=== PATIENT | female | born 1935 | race Caucasian/White ===

== ENCOUNTER 2020-03-02 11:09 | Outpatient (CLI) | payer MEDICARE, SELFPAY ==
--- NOTE | ~2020-03-02 | XR_ITS ---
EXAMINATION: XR lumbar spine 6V w bending EXAM DATE: 03/02/2020 11:54 INDICATION: Low back pain, bilateral hip radiculopathy. TECHNIQUE: Lumber spine frontal, lateral, bilateral oblique projections. Coned down frontal and lat eral L5-S1 lumbar projections for interpretation. There is no prior study for comparison. FINDINGS: There is no spondylolysis. There is moderate lumbar facet arthropathy. Moderate disc diseas e L2-L5. The vertebral bodies are aligned in the AP dimension on the lateral projections. No endplate erosive change. Patient may have a right renal arterial stent. IMPRESSION: 1. Moderate lumbar spondylosis. Reviewed, dictated and finalized at location B.
== END 2020-03-02 11:10 | disposition home or self-care (01) ==
PROVIDERS: PCP Internal Medicine
DX: M54.5 Low back pain (principal); M47.816 Spondylosis without myelopathy or radiculopathy, lumbar region
CPT/HCPCS: 72114

== ENCOUNTER → 2021-03-05 14:32 | Outpatient (CLI) | payer MEDICARE, SELFPAY ==
--- NOTE | ~2021-03-05 | XR_ITS ---
XR hip RT 2V w AP pelvis DATE: 03/05/2021 15:07 INDICATION: Right low back pain, sciatica, right hip pain TECHNIQUE: AP pelvis. AP and lateral views of right hip COMPARISON: None FINDINGS: Multilevel lumbar degenerative disc disease. The pubic symphysis and sacroiliac joints are intact. No pelvic fracture or bone destruction. There is severe bilateral hip osteoarthritis. No fracture or dislocation, avascular necrosis or bone destruction of the right hip is detected. IMPRESSION: Bilateral severe hip osteoarthritis Reviewed, dictated and finalized at location B.
--- NOTE | ~2021-03-05 | XR_ITS ---
XR lumbar spine min 4V DATE: 03/05/2021 15:06 INDICATION: Low back pain, right sciatica TECHNIQUE: AP, lateral, bilateral oblique views, coned lateral lumbosacral view COMPARISON: 03/02/2020 lumbar spine FINDINGS: Incidentally noted are numerous calcified gallstones. Probable right renal artery stent. There is diffuse osteopenia. There is mild levoscoliosis of the lumbar spine. There is multilevel degenerative disc disease of the lumbar spine. There is degenerative change of the facet joints but no pars intra-articular is defect is noted. The lumbar pedicles are intact. No fracture or bone destruction of the lumbar spine is evident. The sacroiliac joints are intact. IMPRESSION: Diffuse osteopenia Prominent multilevel degenerative disc disease Cholelithiasis Reviewed, dictated and finalized at location B.
== END ==
PROVIDERS: PCP Family Medicine; Visit Provider Family Medicine
DX: M54.41 Lumbago with sciatica, right side (principal); M16.0 Bilateral primary osteoarthritis of hip; M85.88 Other specified disorders of bone density and structure, other site; M51.36 Other intervertebral disc degeneration, lumbar region; K80.20 Calculus of gallbladder without cholecystitis without obstruction
CPT/HCPCS: 72110; 73502

== ENCOUNTER 2021-04-09 10:00 | Outpatient (RCR) | payer MEDICARE, SELFPAY ==
--- NOTE | 2021-03-14 13:39 | PTOPEVAL ---
PHYSICAL THERAPY EVALUATION AND PLAN OF CARE Thank you for referring Lorenza Serrano to [facility].? The patient is scheduled to be seen for therapy? 2x/week for 4 weeks. Please review, sign, date and return this plan of care HORTENCIA. I agree with and certify that the following plan of care is medically necessary. Referring Physician Date Attending Provider: Anival Olsen MD Evaluation Outpatient Past Medical History Neurological History Hx Other Neurological Disorders Yes: bilatera neuropathy Respiratory History Hx Chronic Obstructive Pulmonary Disease Yes (COPD) Musculoskeletal History Hx Joint Replacement Yes: right TKA Hx Other Musculoskeletal Disorders Yes: foot surgery Diagnosis low back pain with right sided leg pain Onset several years Subjective Information reports a long history of low Query Text:As Reported By Patient/ back pain with newer onset of Family right sided leg pain. Reports on and off back pain for several years. Does wear a back brace when doing more difficult tasks like lawn work or cleaning the deck, etc. The brace does help. Notes that there is a right sided leg pain that started as kind of a burning sensation. States it has been going on for about a month. States that she was up and down the stairs a lot. She does avoid standing and walking for long periods due to COPD. Self Report Pain Assessment Back Reported Pain Level 4 Pain Description Aching Lowest Pain Intensity 1 Greatest Pain Intensity 8 Pain Aggravating Factors Prolonged Position,Walking, Weight Bearing/Standing Other Pain Aggravating Factors sleeps on right side with head of bed elevated Pain Behaviors Anxious Pain Score Pain Score 4: Self Report Additional Pain Score Comments noted increased episodes of waking at night due to pain Interventions Used Interventions Used By Clinicians Exercise,Mobilization Cervical and Lumbar ROM Lumbar ROM Lumbar Flexion Active [place] Query Text:Hands to: Lateral Rotation Right (0-45) 30 Query Text:Active in Degrees Lateral Rotation Left (0-45) 15 Query Text:Active in Degrees Lumbar Comments hinging
--- NOTE | 2021-03-20 11:29 | PCPTNOTE ---
Patient called & cancelled scheduled appointment this date stated she woke up having an issue wasn't going to make it in today.
--- NOTE | 2021-04-09 10:23 | PTOPEVAL ---
PHYSICAL THERAPY DISCHARGE NOTE Thank you for referring Lorenza Serrano to [facility].? Please review, sign, date and return this plan of care HORTENCIA. I agree with and certify that the following plan of care is medically necessary. Referring Physician Date Attending Provider: Anival Olsen MD Discharge Diagnosis low back pain with right sided leg pain Onset several years Subjective Information States that she is feeling Query Text:As Reported By Patient/ really good in regards to pain Family . She is confident in her ability to do her exercises and is getting a recumbent bike Pain Score Pain Score 0: Self Report Cervical and Lumbar ROM Lumbar ROM Lumbar Flexion Active [place],Ankle Query Text:Hands to: Lumbar Extension (0-40) 5 Query Text:Active in Degrees Lateral Rotation Right (0-45) 30 Query Text:Active in Degrees Lateral Rotation Left (0-45) 30 Query Text:Active in Degrees Lower Extremity Muscle Strength Testing Hip Strength Right Hip Flexion Strength 5 Normal Hip Extension Strength 4 Good Hip Abduction Strength 4+ Good + Left Hip Flexion Strength 5 Normal Hip Extension Strength 4+ Good + Hip Abduction Strength 4+ Good + Knee Strength Bilateral Knee Flexion Strength 5 Normal Knee Extension Strength 5 Normal Muscle Length Testing Muscle Length Testing Piriformis w/Hip Flexion >90 Degrees (R) Moderate Tightness,(L) Moderate Tightness Left Hamstring Length -15 Query Text:(90 - 90 Position) Right Hamstring Length -15 Query Text:(90 - 90 Position) Palpation Assessment Palpation Palpation tender to palpation of right glutes and piriformis and ITB Balance Assessment 5 Time Sit to Stand Time in Seconds 12.12 General Exercise General Exercises Side Bilateral Exercise Location LE Exercise Description reviewed HEP and patient is Query Text:Record Sets, Reps, independent; issued green band Resistance, and Position to increase resistance Exercise Comments verbal review of HEP- performing without any concerns or questions; PT Clinical Summary Lorenza is an 85 yo female presenting to outpatient physical therapy with chronic intermittent low back pain with new onset r
== END 2021-04-09 17:37 | disposition home or self-care (01) ==
LOC: ANHPT 10:00
PROVIDERS: PCP Family Medicine; Visit Provider Family Medicine
DX: M54.41 Lumbago with sciatica, right side (principal)
CPT/HCPCS: 97110; 97140; 97162

== ENCOUNTER 2021-06-05 16:39 | Outpatient (CLI) | payer MEDICARE, SELFPAY ==
--- NOTE | ~2021-06-05 | DEXA_ITS ---
Bone Density Report Name: ANDRES GRANADOS Age: 85 Sex: Female Ethnicity: White Date of : 1935 Indication: postmenopausal; prior fracture; asthma or emphysema; hysterectomy; Referring Provider: MIC GONZALEZ Study: Bone densitometry was performed. Exam Date: June 05, 2021 Accession number: [id number] Bone Density: Region BMD T-score Z-score Classification AP Spine (L1-L4) 0.989 -0.5 2.3 Normal Femoral Neck (Left) 0.762 -0.8 1.7 Normal Total Hip (Left) 0.888 -0.4 1.9 Normal Total Hip Bilateral Avg 0.854 -0.7 1.6 Normal Femoral Neck (Right) 0.669 -1.6 0.9 Osteopenia Total Hip (Right) 0.819 -1.0 1.3 Normal World Health Organization criteria for BMD impression classify patients as: Normal (T-score at or above -1.0), Osteopenia (T-score between -1.0 and -2.5), or Osteoporosis (T-score at or below -2.5). 10-year Fracture Risk(1): Major Osteoporotic Fracture 19% Hip Fracture 4.6% Reported Risk Factors: [place] (), Neck BMD=0.669, BMI=33.8, previous fracture (1) FRAX(R) Version 3.08. Fracture probability calculated for an untreated patient. Fracture probability may be lower if the patient has received treatment. Clinical Information Provided by Patient: Has had a low trauma fracture Has used the following medications: Vitamin D, Calcium Has the following medical conditions: Asthma or Emphysema, Hysterectomy Patient maximum height was 62 Menopause Age: 24 No regular weight bearing exercise Drinks caffeinated beverages Onset of menses at age 17 Number of children 2 Impression: The patient has low bone mass, based on the Right Femoral Neck T-score. The patient has an estimated ten-year risk of hip fracture of 4.6% and an estimated ten-year risk of major fracture of 19%, based on the WHO FRAX algorithm. The patient has risk factors, including: previous fracture. Discussion: BONE DENSITY IS LOW AT ONE OR MORE SKELETAL SITES. THE PATIENT'S BMD AND CLINICAL RISK FACTORS CONTRIBUTE TO THIS PATIENT'S INCREASED RISK OF FRACTURE. This patient's lowest T-score is low at one or more skeletal sites. It meets the World Health Organization's (WHO) criteria for ?low bone mass? (T-score between -1.0 and -2.5). The patient's 10-year risk of hip fracture as calculated by FRAX exceeds the threshold where pharmacological therapy is recommended by the National Osteoporosis Foundation (NOF). However, all treatment decisions require clinical judgment and consideration of individual patient factors, including patient preferences, comorbidities, previous drug use, risk factors not captured in the FRAX model (e.g., frailty, falls, vitamin D deficiency, increased bone turnover, interval significant decline in bone density) and possible under or overestimation of fracture risk by FRAX. The patient should foll
== END 2021-06-05 16:40 | disposition home or self-care (01) ==
PROVIDERS: PCP Family Medicine; Visit Provider Family Medicine
DX: Z78.0 Asymptomatic menopausal state (principal); M85.851 Other specified disorders of bone density and structure, right thigh
CPT/HCPCS: 77080

== ENCOUNTER 2021-12-04 09:41 | Outpatient (RCR) | payer MEDICARE, SELFPAY ==
[2021-12-04] MEDS: ACETAMINOPHEN 325 MG TABLET 650 MG PO (11:44)
[2021-12-04] MEDS: diphenhydrAMINE HCl CAP 25 MG CAPSULE PO (11:44)
[2021-12-04] MEDS: FAMOTIDINE 20 MG TABLET PO (11:45)
[2021-12-04] MEDS: BEBTELOVIMAB 175 MG/2 ML VIAL IV PUSH (12:11)
[2021-12-04 12:18] VITALS: BP 137/75; PULSE 64; RESP 18; TEMP 36.3; O2SAT 98
[2021-12-04 13:07] VITALS: BP 154/53; PULSE 66; RESP 18; O2SAT 99
== END 2021-12-04 16:00 ==
LOC: AMCINF 09:41
PROVIDERS: PCP Family Medicine; Referring Provider Family Medicine; Visit Provider Internal Medicine Hematology & Oncology
DX: U07.1 COVID-19 (principal); N18.9 Chronic kidney disease, unspecified
CPT/HCPCS: A9270; M0222; Q0222

== ENCOUNTER 2023-06-16 14:26 | Outpatient (CLI) | payer MEDICARE, SELFPAY ==
[2023-06-16 15:31] LABS: Influenza A QL RT-PCR Negative (Negative); Influenza B QL RT-PCR Negative (Negative); RSV RNA, RT-PCR Negative (Negative); SARS-CoV-2 RNA PCR Positive (Negative)
== END 2023-06-16 14:27 | disposition home or self-care (01) ==
LOC: ANHLAB 14:27
PROVIDERS: PCP Family Medicine; Visit Provider Nurse Practitioner Family
DX: R68.89 Other general symptoms and signs (principal); U07.1 COVID-19
CPT/HCPCS: 87637

== ENCOUNTER 2023-08-19 12:06 | Outpatient (CLI) | payer MEDICARE, SELFPAY ==
[2023-08-19 12:43] LABS: Basophils Percent Auto 0.6 % (0.2-1.2); Eosinophils Absolute Auto 0.2 K/mm3 (0-0.3); Eosinophils Percent Auto 3.9 % (0-4.4); Hematocrit 40.6 % (37.0-47.0); Hemoglobin 13.3 g/dL (12.0-15.0); Immature Granulocyte Absolute 0.01 K/mm3 (0.00-0.031); Immature Granulocyte Percent A 0.2 % (0-0.5); Lymphocytes Percent Auto 35.4 % (18.3-44.2); Mean Corpuscular HGB Conc 32.8 g/dl (32-36); Mean Corpuscular Hemoglobin 30.4 pg (26-34); Mean Corpuscular Volume 92.9 fl (80-100); Mean Platelet Volume 9.4 fl (7.4-10.4); Monocytes Absolute Auto 0.6 K/mm3 (0.1-0.6); Monocytes Percent Auto 11.6 % (2.6-8.5); Neutrophils Absolute Auto 2.5 K/mm3 (1.3-6.7); Neutrophils Percent Auto 48.3 % (45.5-73.1); Platelet Count Result 201 k/mm3 (150-375); Red Blood Count 4.37 M/mm3 (4.2-5.4); Red Cell Distribution Width 13.1 % (11.5-14.5); White Blood Count 5.1 K/mm3 (4.5-10.0)
[2023-08-19 12:56] LABS: Alanine Aminotransferase 17 U/L (6-35); Alkaline Phosphatase 96 U/L (38-126); Anion Gap 3 mmol/L (8-16); Aspartate Amino Transferase 23 U/L (14-36); Bilirubin,Total 0.6 mg/dL (0.2-1.3); Blood Urea Nitrogen 21 mg/dL (7-17); Calcium 9.3 mg/dL (8.4-10.2); Carbon Dioxide 27 mmol/L (22-30); Chloride 105 mmol/L (98-107); Cholesterol 156 mg/dL (0-200); Estimated Glomerular Filt Rate 52; Glucose 116 mg/dL (65-110); HDL Direct 69 mg/dL; Potassium 4.2 mmol/L (3.4-5.0); Sodium 135 mmol/L (137-145); Triglycerides 181 mg/dL (<150)
[2023-08-19 13:04] LABS: Appearance Urine Clear (Clear); Bacteria Urine None Seen /hpf; Bilirubin Urine Negative (Negative); Blood Urine 1+ (Negative); Color Urine Yellow (Yellow); Glucose Urine UA Negative (Negative); Hyaline Casts Urine Present /lpf; Ketones Urine Negative (Negative); Leukocyte Esterase Ur 1+ LEU/UL (NEGATIVE); Nitrate Urine Negative (Negative); Non Pathogenic Casts 0-2; Protein Urine Negative (Negative); Specific Grav Ur 1.021 (1.001-1.035); Squamous Epithelial Cell Urine Occasional /hpf (Few); WBC Urine 0-5 /hpf (0-3); pH Urine 5.5 (5.0-9.0)
[2023-08-19 13:07] LABS: LDL Cholesterol Direct 66 mg/dL
[2023-08-19 13:12] LABS: Add Urine Microscopic? YES
== END 2023-08-19 12:07 | disposition home or self-care (01) ==
LOC: ANHLAB 12:14
PROVIDERS: PCP Family Medicine; Visit Provider Family Medicine
DX: J44.9 Chronic obstructive pulmonary disease, unspecified (principal); E78.2 Mixed hyperlipidemia; R73.01 Impaired fasting glucose
CPT/HCPCS: 36415; 80048; 80061; 80076; 81001; 84443; 85025

== ENCOUNTER 2024-03-08 10:00 | Outpatient (RCR) | payer MEDICARE, SELFPAY | END 2024-03-10 16:59 | disposition home or self-care (01) | LOC: ANHCPREHAB 10:00 | PROVIDERS: PCP Family Medicine; Visit Provider Internal Medicine Cardiovascular Disease | DX: Z95.5 Presence of coronary angioplasty implant and graft (principal) | CPT/HCPCS: 93798 ==

== ENCOUNTER 2024-09-01 09:29 | Outpatient (CLI) | payer MEDICARE, SELFPAY ==
--- NOTE | ~2024-09-01 | US_ITS ---
EXAMINATION: US arterial duplex LE DATE: 09/02/2024 8:02 CDT INDICATION: Peripheral vascular disease TECHNIQUE: Segmental pressures and plethysmographic and Doppler waveforms of the brachial and lower e xtremity arteries were obtained. COMPARISON: None. FINDINGS: There is biphasic flow seen throughout the right lower extremity arteries. There is diminished systol ic velocity in the right posterior tibial artery which measures 23 cm/s. The remainder of the right l ower extremity peak systolic velocities are unremarkable. There is biphasic flow throughout the left lower extremity arteries without evidence for significant pressure gradient. There is normal color flow and Doppler signal. IMPRESSION: 1. No significant peripheral vascular abnormality is identified in the left lower extremity arteries with biphasic flow in normal velocities. 2: Normal biphasic flow in the right lower extremity arteries decreases systolic velocity in the post erior tibial artery measuring 23 cm/s, consistent with peripheral arterial disease. Reviewed, dictated and finalized at location A. IMPRESSION: 1. No significant peripheral vascular abnormality is identified in the left low er extremity arteries with biphasic flow in normal velocities. 2: Normal biphasic flow in the right lower extremity arteries decreases systoli c velocity in the posterior tibial artery measuring 23 cm/s, consistent with pe ripheral arterial disease.
--- OUTSIDE RECORDS SUMMARY | 2024-09-01 10:17 | XMS_ITS | Clinical Summary ---
Author Organization [facility] Address [address] [place] [address] Care Team Providers Care Supervisor Shuttle Fitting Name Role Phone Eladio Roblero MD Unavailable [phone] Anival Olsen MD Primary Care Provider [phone] Allergies No known active allergies Medications vitamin B-12 (CYANOCOBALAMIN) 1000 mcg tablet Take 1 tablet (1,000 mcg total) by mouth daily. Active aspirin EC 81 MG EC tablet Take 1 tablet (81 mg total) by mouth daily. Active ondansetron 4 MG disintegrating tablet Take 1 tablet (4 mg total) by mouth every 8 (eight) hours as needed for Nausea. 20 tablet 9 Active meclizine 25 MG tablet Take 1 tablet (25 mg total) by mouth 3 (three) times daily as needed. Active clopidogrel (PLAVIX) 75 MG tablet Take 1 tablet (75 mg total) by mouth daily. 90 tablet 3 4 10/16/19 25 Active famotidine (PEPCID) 20 MG tablet Take 1 tablet (20 mg total) by mouth daily. 1 tablet 4 Active isosorbide mononitrate ER (IMDUR) 60 MG 24 hr tablet Take 1 tablet (60 mg total) by mouth daily. 90 tablet 2 4 Active nitroglycerin (NITROSTAT) 0.4 MG SL tabletIndications:C hest pain Place 1 tablet (0.4 mg total) under the tongue every 5 (five) minutes as needed for Chest Pain. Max of 3 doses, after third dose call 911 25 tablet 1 4 Active carvedilol (COREG) 6.25 MG tablet TAKE 1 TABLET BY MOUTH TWICE DAILY 180 tablet 3 4 Active atorvastatin (LIPITOR) 40 MG tablet TAKE 1 TABLET BY MOUTH NIGHTLY AT BEDTIME 90 tablet 1 5 Active ramipril (ALTACE) 10 MG capsule TAKE 1 CAPSULE BY MOUTH DAILY 100 capsule 2 5 Active Active Problems Problem Noted Date Diagnosed Date Palpitations 03/26/2024 Premature atrial complexes 08/08/2022 Hyperlipidemia, unspecified hyperlipidemia type 09/28/2018 Coronary stent patent 09/28/2018 Shortness of breath 07/31/2018 Class 1 obesity due to exces s calories without serious comorbidity with body mass index (BMI) of 34.0 to 34.9 in adult 07/31/2018 Hypertensive heart disease without heart failure 07/31/2018 Coronary artery disease Myocardial infarct ([facility]) Encounters Date Type Department Care Team Description 06/03/2024 Telephone [employer] [facility], [address] [address] Eladio Roblero MD Concerns from Last 3 Months Family History Medical History Relation Comments Emphysema Father Diabetes Mother Heart Attack Mother Hyperlipidemia Mother Relation Status Comments Brother Alive Father (Age 77) Mother (Age 77) Social History Tobacco Use Types Packs/Day Years Used Date Smoking Tobacco: Never Smokeless Tobacco: Never Tobacco Cessation:Counseling Given: Not Answered Alcohol Use Standard Drinks/Week Comments No 0 (1 standard drink = 0.6 oz pur e alcohol) AUDIT-C Answer Date Recorded Frequency of Alcohol Consumption Never 07/11/2018 Average Number of Drinks Not on file 019 Frequency of Binge Drinking Not on file 07/2018 Comments No Sex and Gender Information Value Date Recorded Sex Assigned at Not on file 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 Gender Identity Not on file Sexual Orientation Not on file Occupation Industry Job Start Date Job End Date Not on file Not on file Not on file Not on file Last Filed Vital Signs Vital Sign Reading Time Taken Comments Blood Pressure 120/62 03/26/2024 12:38 PM CDT Pulse 74 03/26/2024 12:38 PM CDT Temperature 36.6 C (97.9 F) 10/16/2023 8:31 AM CDT Respiratory Rate 17 10/16/2023 2:15 PM CDT Oxygen Saturation 97% 03/26/2024 12:38 PM CDT Inhaled Oxygen Concentration - - Weight 86.8 kg (191 lb 6.4 oz) 03/26/2024 12:38 PM CDT Height 157.5 cm (5' 2 ) 03/26/2024 12:38 PM CDT Body Mass Index 35.01 03/26/2024 12:38 PM CDT Plan of Treatment Upcoming Encounters Date Type Department Care Team (Late st Contact Info) Description 09/24/2024 1:30 PM CDT Office Visit [facility] [phone] Eladio Roblero MD [address] [place] [phone] Health Maintenance Due Date Last Done Comments Pneumococcal Vaccine: 65+ Ye ars (1 of 2 - PCV) 1942 DTaP, Tdap and Td Vaccines ( 1 - Tdap) 1955 Zoster Vaccines (1 of 2) 1986 Annual Medicare Wellness Visit 2001 RSV Immunization or 60+ Years (1 - 1-dose 75+ series) 2011 COVID-19 Vaccine (2 - 2023-2 5 season) 2024 08/25/2020 Influenza Adult (#1) 2024 Meningococcal B Vaccine Aged Out No l onger eligible based on patient's age to complete this topic Meningococcal Vaccine Aged Out No vahid jin eligible based on patient's age to complete this topic RSV Immunizations Under 20 Months Aged Out No longer eligible based on patient's age to complete this topic Insurance [facility] Advance Directives * Full Code (Latest Code Status on File) Date Activated Date Inactivated Comments 10/16/2023 10:55 AM 10/16/2023 4:48 PM Care Teams Supervisor Shuttle Fitting Relationship Specialty Start Date End Date Anival Olsen MD [address] [place] [address] [address] [place] [address] PCP - General FAMILY PRACTICE 04/05/21 Eladio Roblero MD [address] [facility] [address] [place] [phone] [place] [employer] CARDIOVASCULAR DISEASE 07/15/18
--- OUTSIDE RECORDS SUMMARY | 2024-09-01 10:17 | XMS_ITS | Encounter Summary ---
Author Organization [facility] Address [facility] [place] [address] Care Team Providers Care Fingernail Former Name Role Phone Yandel Covington MD Primary Care Provider [phone] Eladio Roblero MD Unavailable [phone] Anival Olsen MD Primary Care Provider [phone] Encounter Details Date Type Department Care Team (Late st Contact Info) Description 09/30/2018 [facility] at [address] [address] Jayme Pollard MA Social History Tobacco Use Types Packs/Day Years Used Date Smoking Tobacco: Never Smokeless Tobacco: Never Alcohol Use Standard Drinks/Week Comments No 0 (1 standard drink = 0.6 oz pur e alcohol) AUDIT-C Answer Date Recorded Frequency of Alcohol Consumption Never 07/11/2018 Average Number of Drinks Not on file 019 Frequency of Binge Drinking Not on file 07/2018 Comments Unknown Sex and Gender Information Value Date Recorded Sex Assigned at Not on file 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 Gender Identity Not on file Sexual Orientation Not on file Occupation Industry Job Start Date Job End Date Not on file Not on file Not on file Not on file documented as of this encounter Plan of Treatment Upcoming Encounters Date Type Department Care Team (Late st Contact Info) Description 09/24/2024 1:30 PM CDT Office Visit [facility] [phone] Eladio Roblero MD [address] [phone] documented as of this encounter Procedures Procedure Name Priority Date/Time Associated Diagnosis Comments CBC (OUTSIDE LAB) Routine 06/16/2020 COMPREHENSIVE METABOLIC PANEL Routine 06/16/2020 LIPID PANEL Routine 06/16/2020 COMPREHENSIVE METABOLIC PANEL Routine 12/27/2019 LIPID PANEL Routine 12/27/2019 HEMOGLOBIN, GLYCOSYLATED Routine 12/27/2019 COMPREHENSIVE METABOLIC PANEL Routine 09/29/2018 LIPID PANEL Routine 09/29/2018 documented in this encounter Results * LIPID PANEL (06/16/2020) Pathologist [facility] CHOLESTEROL 158 HDL 77 TRIGLYCERIDES 87 LDL (CALCULATED) 64 06/16/2020 [facility]ORAT[facility] Final Result * CBC (OUTSIDE LAB) (06/16/2020) Pathologist [facility] WBC 5.1 HGB 13.1 HCT 39.9 PLT 194 06/16/2020 us Doc [facility] Abstract LAB-OUTSIDE/ABSTRACTED Final Result * (ABNORMAL) COMPREHENSIVE METABOLIC PANEL (06/16/2020) SODIUM S/P/B 139 POTASSIUM S/P/B 4.7 CO2 26 CHLORIDE S/P/B 107 GLUCOSE 107 mg/dL CALCIUM S/P/B 9.2 BUN 24 CREATININE S/P/B 1.02(A) 0.5 - 1.0 EGFR NON-AFR. AMER. 52 <=90 ALKALINE PHOSPHATASE S/P/B 82 ALT 16 AST 22 BILIRUBIN TOTAL S/P/B 0.80 ALBUMIN S/P/B 3.7 3.5 - 5.0 TOTAL PROTEIN S/P/B 6.1 GLOBULIN 2.4 06/16/2020 us Doc [facility] Final Result * COMPREHENSIVE METABOLIC PANEL (12/27/2019) SODIUM S/P/B 136 137 - 145 POTASSIUM S/P/B 4.9 3.5 - 5.1 CO2 28 22 - 30 CHLORIDE S/P/B 103 98 - 107 GLUCOSE 114 70 - 99 mg/dL CALCIUM S/P/B 9.3 8.4 - -10.2 BUN 24 8 - 19 CREATININE S/P/B 0.96 0.5 - 1.0 EGFR NON-AFR. AMER. 56 <=90 ALKALINE PHOSPHATASE S/P/B 86 38 - 126 ALT 18 0 - 35 AST 23 15 - 37 BILIRUBIN TOTAL S/P/B 0.90 0.20 - 1.30 ALBUMIN S/P/B 3.7 3.5 - 5.0 TOTAL PROTEIN S/P/B 6.3 6.3 - 8.2 GLOBULIN 2.6 2.6 - 4.2 12/27/2019 us Doc [facility] LAB[facility] Final Result * HEMOGLOBIN, GLYCOSYLATED (12/27/2019) HGB A1C 5.8 4.0 - 6.0 % 12/27/2019 us Doc [facility] Edited Resul t - Final * LIPID PANEL (12/27/2019) CHOLESTEROL 158 140 - 199 HDL 77 >40 TRIGLYCERIDES 86 0 - 150 LDL (CALCULATED) 64 0 - 130 12/27/2019 us Doc [facility] Final Result * COMPREHENSIVE METABOLIC PANEL (09/29/2018) SODIUM S/P/B 140 POTASSIUM S/P/B 4.2 CO2 28 CHLORIDE S/P/B 106 GLUCOSE 107 mg/dL CALCIUM S/P/B 8.9 BUN 21 CREATININE S/P/B 0.91 0.5 - 1.0 EGFR NON-AFR. AMER. 59 <=90 ALKALINE PHOSPHATASE S/P/B 78 ALT 17 AST 22 BILIRUBIN TOTAL S/P/B 0.60 ALBUMIN S/P/B 3.7 3.5 - 5.0 TOTAL PROTEIN S/P/B 6.0 GLOBULIN 2.3 09/29/2018 us Doc [facility] Edited Resul t - Final * LIPID PANEL (09/29/2018) CHOLESTEROL 136 HDL 71 TRIGLYCERIDES 73 LDL (CALCULATED) 50 09/29/2018 us Doc [facility] Final Result documented in this encounter Visit Diagnoses Not on filedocumented in this encounter Care Teams Fingernail Former Relationship Specialty Start Date End Date Yandel Covington MD [address] [facility] [address] [place] [address] PCP - General INTERNAL MEDICINE 07/11/18 04/04/21 Anival Olsen MD [address] [place] [address] [address] [place] [address] PCP - General FAMILY PRACTICE 04/05/21 Eladio Roblero MD 3 [facility] [address] [place] [phone] [place] [employer] CARDIOVASCULAR DISEASE 07/15/18 documented as of this encounter
--- OUTSIDE RECORDS SUMMARY | 2024-09-01 10:17 | XMS_ITS | Data Portability ---
Author Organization [place] - [facility], Main Office Address [address] [place] [address] Assessment Encounter Date Assessment Date Assessment LastModified by Organization Details LastModified Time 07/29/2023 07/29/2023 This note is dictated and transcribed by [employer]. Alodize Machine Operator variances may occur. Despite proofreading, typographical errors may occur. Occasional wrong-word or [id number] substitutions may have occurred due to the inherent limitations of voice recording. Read the chart carefully and recognize, using context, where substitutions have occurred. isaias Not available 07/31/2023 09:38:41 Plan of Treatment Reminders Order Date Submit Date Provider Last Modified By Organization Details Last Modified Time Details Appointments None recorded. Lab None recorded. Referral physical therapist referral - Once a week for one month right ankle physical therapy, range of motion and strengtheni ng exercises 2023 024 barb Gomes Not available 09:58:04 Procedures None recorded. Surgeries None recorded. Imaging XR, ankle, 3 or more view 2023 024 barb Gomes [facility] [place], [facility], [address], [place], [address], 4 09:40:27 XR, ankle, 3 or more view - podiatry to read [email or web address] [facility] (Imaging), [address], [place], [address], 4 08:12:38 Medication Orders diclofenac sodium 75 mg tablet,alisha yed release 2023 024 VIANCA [facility], [facility] [address], [facility] [address], [place], [place], [id number], 4 09:39:25 Patient TargetsNo targets recorded. Patient InstructionsNo instructions recorded. Reason for Referral Physical Therapist Referral for Pain of right ankle joint Once a week for one month right ankle physical therapy, range of motion and strengthening exercises Referring Physician: Robson Mulligan, Podiatric Surgery, Encounter Date: 08/19/2023 Results Created Date Observation Date Name Description Value Unit Range Abnormal Flag Note LastModifiedBy Organization Detail LastModifiedTime 12/18/19 22 XR, humer us No observ ation record ed. [id number] Not Available 08/07/2022 04:44:25 08/19/19 24 XR, ankle , 3 or more view No observ ation record ed. [email or web address] [facility] [place] [address] [place] [address], [address], [place], [address], 08/19/2023 09:40:26 Result Notes None recorded. Problems Name Problem SNOMED Code Status Onset Date Resolution Date Notes Provider Name and Address Organization Details Recorded Time Pain of right ankle joint [id number] Active 2023 Robson Mulligan, DPM [address] [facility], [facility] [address], [place] [address] , [facility] 4 11:54:10 Menopausa l symptom 77026674 Active Not Available [facility] 3 04:36:42 Gastroeso phageal reflux disease 779971699 Active Not Available [facility] 3 04:36:42 Knee pain Active Not Available [facility] 3 04:36:42 Dyslipide cruz 078422260 Active Not Available [facility] 3 04:36:42 Malignant neoplasm of skin 103441515 Active 2016 Not Available [facility] 3 04:36:42 Malignant neoplasm of skin 937669944 Completed 201601/22/2017 Not Available [facility] 3 04:36:42 Osteoarth ritis 620008957 Active Not Available [facility] 3 04:36:42 Ingrowing toenail 131242572 Active 2020 Not Available [facility] 3 04:36:42 Onychomyc osis of toenails 048540302 Active 2022 Not Available [facility] 3 04:36:42 Bunion 251044159 Active 2022 Not Available [facility] 3 04:36:42 Coronary arteriosc lerosis 29493368 Active Not Available [facility] 3 04:36:42 Essential hypertens ion 47312296 Active Not Available [facility] 3 04:36:42 Vulvitis 09043955 Active Not Available [facility] 3 04:36:42 Candidias is of vagina 60519882 Completed Not Available [facility] 3 04:36:42 Notes:heart stent Problem Notes None recorded. Procedures Surgical History Date Name Laterality Status Provider Name and Address Organization Details Recorded Time 07/29/19 24 Cortisone Injection Ankle-Right completed Robson Mulligan DPM [address] [facility], [address] [address], [place], [address], [facility] [employer] [facility] 07/29/2023 11:56:09 Wrist arthroscopy/surg malachi completed Not Available [facility] 08/07/2022 04:31:39 Appendectomy completed Not Available [facility] 08/07/2022 04:31:39 Breast Biopsy completed Not Available [facility] 08/07/2022 04:31:39 Foot Surgery completed Not Available [facility] 08/07/2022 04:31:39 total abdominal hysterectomy with bilateral salpingo-oophore ctomy completed Not Available [facility] 08/07/2022 04:31:39 Cardiac Stent Placement completed Not Available [facility] 08/07/2022 04:31:39 Imaging Results Imaging Date Name Status LastModified by Organiz ation Details LastModified Time 12/17/2021 XR, humerus completed [id number] Information not available 08/07/2022 04:44:25 08/19/2023 XR, ankle, 3 or more view completed [email or web address] [facility] [place] [address], [address], [place], [address], 08/19/2023 09:40:26 Procedure Notes None recorded. Medical Equipment None Reported. Medications Name Sig Start Date Stop Date Status Note LastModified by Organization Details LastModified Time cyclobenzap rine 10 mg tablet TAKE 1 TABLET BY MOUTH 3 TIMES DAILY NEEDED 08/18 completed Not Available Not Available Not Available amoxicillin 500 mg capsule Take 1 capsule twice a day by oral route for 7 days. active Not Available Not Available No t Available latanoprost 0.005 % eye drops 01/05 completed Not Available Not Available Not Available carvedilol 6.25 mg tablet TAKE 1 TABLET BY MOUTH TWICE DAILY WITH FOOD active Not Available Not Available No t Available doxycycline hyclate 100 mg capsule 03/13 completed Not Available Not Available Not Available atorvastati n 20 mg tablet TAKE 1 TABLET BY MOUTH EVERY NIGHT AT BEDTIME active Not Available Not Available No t Available triamcinolo ne acetonide 0.5 % topical cream APPLY A THIN LAYER TO THE AFFECTED AREA(S) BY TOPICAL ROUTE 2 TIMES PER DAY PRN active Not Available Not Available No t Available azithromyci n 250 mg tablet TAKE 2 TABLETS BY MOUTH TODAY, THEN TAKE 1 TABLET DAILY FOR 4 DAYS DIRECTED 08/18 completed Not Available Not Available Not Available fluconazole 150 mg tablet Take 1 tablet as needed by oral route as directed for 1 day. active Not Available Not Available No t Available ampicillin 500 mg capsule 03/06 completed Not Available Not Available Not Available albuterol sulfate 1.25 mg/3 mL solution for nebulizatio n INHALE 3 ML BY NEBULIZAT ION ROUTE ONCE EVERY 4-6 HOURS NEEDED FOR SHORTNESS OF BREATH/WH EEZING 03/13 completed Not Available Not Available Not Available Nystop 100,000 unit/gram topical powder APPLY TO THE AFFECTED AREA(S) BY TOPICAL ROUTE 2 TIMES PER DAY 08/10 completed Not Available Not Available Not Available meloxicam 15 mg tablet 03/13 completed Not Available Not Available Not Available isosorbide mononitrate ER 30 mg tablet,exte nded release 24 hr 2023 active Not Available Not Available Not Avai lable terconazole 0.8 % vaginal cream Insert 1 applicato rful every day by vaginal route as needed. active Not Available Not Available No t Available atenolol 25 mg tablet TAKE 1 TABLET BY MOUTH DAILY active Not Available Not Available No t Available simvastatin 80 mg tablet Take by oral route. 2015 active Not Available Not Available Not Avai lable ciprofloxac in 500 mg tablet TK 1 T PO BID FOR 7 DAYS 03/25 completed Not Available Not Available Not Available omeprazole 40 mg capsule,del ayed release Take 1 capsule by mouth daily 01/05 completed Not Available Not Available Not Available aspirin 81 mg tablet,alisha yed release Take 1 tablet every day by oral route. 03/13 completed Not Available Not Available Not Available tramadol 50 mg tablet TK 1 T PO EVERY 4-6 HOURS PRN 02/19 completed Not Available Not Available Not Available triamcinolo ne acetonide 0.1 % topical cream MINDI BID QAM AND Q EVENING. active Not Available Not Available No t Available meloxicam 7.5 mg tablet TAKE 1 TABLET BY MOUTH EVERY DAY 03/13 completed Not Available Not Available Not Available Zofran 4 mg tablet Take 2 tablets twice a day by oral route as needed. 03/13 completed Not Available Not Available Not Available terbinafine HCl 250 mg tablet TAKE 1 TABLET BY MOUTH EVERY DAY 08/18 completed Not Available Not Available Not Available dicyclomine 20 mg tablet Take 1 tablet 3 times a day by oral route as needed. active Not Available Not Available No t Available meclizine 25 mg tablet Take 1 tablet 3 times a day by oral route. 03/13 completed Not Available Not Available Not Available benzonatate 100 mg capsule TAKE 1 CAPSULE BY MOUTH THREE TIMES A DAY FOR 10 DAYS 03/13 completed Not Available Not Available Not Available simvastatin 20 mg tablet 03/06 completed Not Available Not Available Not Available nystatin 100,000 unit/gram topical cream APPLY TO THE AFFECTED AREA(S) BY TOPICAL ROUTE 2 TIMES PER DAY PRN active Not Available Not Available No t Available ranitidine 150 mg tablet TAKE 1 TABLET BY MOUTH TWICE DAILY DIRECTED active Not Available Not Available No t Available ramipril 2.5 mg capsule TAKE ONE CAPSULE BY MOUTH DAILY WITH THE 5 MG 08/18 completed Not Available Not Available Not Available nystatin-tr iamcinolone 100,000 unit/g-0.1 % topical cream APPLY TO THE AFFECTED AREA(S) BY TOPICAL ROUTE 2 TIMES PER DAY IN THEMORNIN G AND EVENING x6 weeks active Not Available Not Available No t Available nitroglycer in 0.4 mg sublingual tablet DIS 1 T UNT Q 5 MIN PRF CP. MDD 3 TS. AFTER THIRD DOSE CALL 911 03/13 completed Not Available Not Available Not Available omeprazole 20 mg capsule,del ayed release TAKE ONE CAPSULE BY MOUTH EVERY MORNING active Not Available Not Available No t Available diclofenac sodium 75 mg tablet,alisha yed release Take 1 tablet twice a day by oral route as needed for 30 days. 2023 active Not Available Not Available Not Avai lable methylpredn isolone 4 mg tablets in a dose pack Take 1 dose pk by oral route as directed. 03/13 completed Not Available Not Available Not Available albuterol sulfate HFA 90 mcg/actuati on aerosol inhaler Inhale 2 puffs every 4 hours by inhalatio n route. 03/13 completed Not Available Not Available Not Available ondansetron 4 mg disintegrat ing tablet DISSOLVE 1 T ON TONGUE Q 8 H PRF NAUSEA 08/10 completed Not Available Not Available Not Available cefdinir 300 mg capsule TAKE 1 CAPSULE BY MOUTH ONCE EVERY 12 HOURS 03/13 completed Not Available Not Available Not Available fluticasone propionate 50 mcg/actuati on nasal spray,suspe nsion 03/13 completed Not Available Not Available Not Available ramipril 5 mg capsule TAKE 1 CAPSULE BY MOUTH DAILY WITH 2.5 MG CAPSULE 08/18 completed Not Available Not Available Not Available ramipril 10 mg capsule active Not Available Not Available N ot Available amoxicillin 875 mg-potassiu m clavulanate 125 mg tablet TK 1 T PO BID FOR 10 DAYS 01/05 completed Not Available Not Available Not Available clindamycin phosphate 1 % topical solution APPLY 2 DROPS DAILY TO PROCEDURE SITE 08/18 completed Not Available Not Available Not Available Estrace 0.01% (0.1 mg/gram) vaginal cream Insert 1 g twice a week by vaginal route. 01/05 completed Not Available Not Available Not Available Premarin 0.625 mg/gram vaginal cream INSERT 1/2 APPLICATO R VAGINALLY EVERY NIGHT AT BEDTIME FOR 2 WEEKS THEN 2 TIMES PER WEEK THEREAFTE R 03/13 completed Not Available Not Available Not Available nitrofurant oin monohydrate /macrocryst als 100 mg capsule Take 1 capsule every 12 hours by oral route for 7 days. active Not Available Not Available No t Available aspirin 03/13 completed Not Available Not Available Not Available Aleve 03/13 completed Not Available Not Available Not Available Vitamin B12 active Not Available Not A vailable Not Available lidocaine 5 % topical ointment APPLY TO AFFECTED AREA(S) BY TOPICAL ROUTE 1-4 TIMES DAILY NEEDED active Not Available Not Available No t Available InnoSpire Essence device USE 4 TIMES A DAY NEEDED FOR SHORTNESS OF BREATH 03/13 completed Not Available Not Available Not Available Wixela Inhub 100 mcg-50 mcg/dose powder for inhalation INAHLE 1 PUFF INTO THE LUNGS ONCE EVERY 12 HOURS, RINSE AND SPIT OUT AFTER USE 03/13 completed Not Available Not Available Not Available ID NOW COVID-19 Test Kit [id number] 2 03/13 completed Not Available Not Available Not Available aspirin 81 mg capsule Take 1 capsule every day by oral route. active Not Available Not Available No t Available Paxlovid 150 mg-100 mg tablets in a dose pack (Renal Dose) TAKE 1 TABLET BY MOUTH TWICE A DAY DIRECTED FOR 5 DAYS 08/18 completed Not Available Not Available Not Available Vitals Date Recorded Oxygen saturation Oxygen saturation in Arterial blood by Pulse oximetry Heart rate Respiratory rate Systolic blood pressure Diastolic blood pressure Provider Name and Address Organization Details Last Updated DateTime 3 98 % 98 % 109 /min 14 /min 103 mm[Hg] 61 mm[Hg] Not Available [facility] 3 04:33:54 Date Recorded Heart rate Respiratory rate Oxygen saturation Oxygen saturation in Arterial blood by Pulse oximetry Systolic blood pressure Diastolic blood pressure Provider Name and Address Organization Details Last Updated DateTime 4 84 /min 14 /min 98 % 98 % 130 mm[Hg] 61 mm[Hg] Roselyn [place] [employer] [facility] 4 11:28:36 Date Recorded Heart rate Respiratory rate Oxygen saturation Oxygen saturation in Arterial blood by Pulse oximetry Systolic blood pressure Diastolic blood pressure Provider Name and Address Organization Details Last Updated DateTime 4 80 /min 14 /min 98 % 98 % 148 mm[Hg] 70 mm[Hg] Roselyn FONG [place] [employer] [facility] 4 09:38:16 Social History Question Answer Notes LastModified by Organizat ion Details LastModified Time Tobacco Smoking Status Never Smoker Not Available [facility] 08/07/2022 04:14:42 Do You Have An Advance Directive? Yes [id number] Information not available 08/07/2022 What Is Your Level Of Alcohol Consumption? None [id number] Information not available 08/07/2022 What Is Your Level Of Caffeine Consumption? None [id number] Information not available 08/07/2022 How Much Tobacco Do You Chew? None [id number] Information not available 08/07/2022 In The 14 Days Before Symptom Onset, Have You Had Close Contact With A Laboratory-confir med COVID-19 While That Case Was Ill? No [id number] Information not available 08/07/2022 In The 14 Days Before Symptom Onset, Have You Had Close Contact With A Person Who Is Under Investigation For COVID-19 While That Person Was Ill? No [id number] Information not available 08/07/2022 What Type Of Diet Are You Following? REGULAR [id number] Information not available 08/07/2022 Which Illicit Or Recreational Drugs Have You Used? None [id number] Information not available 08/07/2022 Do You Or Have You Ever Used E-cigarettes Or Vape? Never Used Electronic Cigarettes [id number] Information not available 08/07/2022 What Is Your Occupation? Retired [id number] Information not available 08/07/2022 Are There Any Guns Present In Your Home? No [id number] Information not available 08/07/2022 Do You Or Have You Ever Used Smokeless Tobacco? Never Used Smokeless Tobacco [id number] Information not available 08/07/2022 How Much Tobacco Do You Smoke? No [id number] Information not available 08/07/2022 Do You Use Sunscreen Routinely? Yes [id number] Information not available 08/07/2022 How Many Years Have You Smoked Tobacco? 0 [id number] Information not available 08/07/2022 Sex: Unknown Functional Status Question Answer Note LastModified by Organizat ion Details LastModified Time What is your exercise level? None [id number] Information not available 08/07/2022 Mental Status None recorded. Family History Relationship Description Onset Age of this Age Resolved Age Notes LastModified by Organization Details LastModified Time Mother Heart disease [id number] Not available 08/07/2022 04:31:43 Father Pulmonary emphysema [id number] Not available 08/07/2022 04:31:43 Medical History Condition Response NERVE DISEASE N BLINDNESS N RHEUMATIC FEVER N KIDNEY STONES N BLADDER PROBLEMS N MRSA N OTHER # 1 N POLIO N LUNG DISEASE/DISORDER Y RADIATION / CHEMOTHERAPY N COPD N Other # 2 N BLOOD DISEASES N EAR OR HEARING PROBLEMS N MUMPS N DEPRESSION (INCLUDING POST ) N BOWEL PROBLEMS N STROKE/TIA N ULCERS N BENIGN PROSTATIC HYPERPLASIA N MEASLES N MYOCARDIAL INFARCTION Y OBESITY N GERD/NAUSEA Y ANEURYSM N URINARY/BLADDER/KIDNEY PROBLEMS Y CORONARY ARTERY DISEASE (CAD) Y ADDICTION CONCERNS N Impotence N ENDOMETRIOSIS N USE OF BLOOD THINNERS N SKIN PROBLEMS N GASTROINTESTINAL DISORDER N PERIPHERAL VASCULAR DISEASE N MUSCLE,JOINT OR BONE PROBLEMS N GASTROINTESTINAL BLEEDING N BLOOD CLOTS N ASTHMA N CATARACTS N ERECTILE DYSFUNCTION N VARICOSITIES N GI PROBLEMS N Low Testosterone N INFERTILITY N AIDS/HIV N CHEMOTHERAPY / RADIATION N LIVER DISEASE N MALE HYPOGONADISM N HYPERTENSION N Deficiency N TOURETTE'S N ANXIETY DISORDER N BLOOD TRANSFUSION N ANEMIA/BLOOD DISORDER N CHRONIC EAR INFECTIONS N BRONCHITIS N TUBERCULOSIS N GLAUCOMA N FOOT PROBLEM N DIVERTICULITIS N SLEEP APNEA N CHICKENPOX N INFECTIOUS DISEASE N PROSTATE N HEART ARRHYTHMIA N INSOMNIA N HYPERTHYROIDISM N EYE PROBLEMS N EDEMA N CHRONIC PAIN SYNDROME N HYPOTHYROIDISM N CONSTIPATION N CAROTID BLOCKAGE N BACK / NECK PROBLEMS N ATHEROSCLEROSIS N BREAST PROBLEMS N DIALYSIS N ECZEMA N OSTEOPOROSIS N ARTHRITIS Y APPENDICITIS N DIABETES, TYPE N BAD TEETH N ENT N HEARTBURN / REFLUX N AUTISM SPECTRUM DISORDER (ASD) N HEPATITIS / LIVER DISEASE N GOUT N SLEEP DISORDER N ALZHEIMER'S DISEASE N Brain Problems N HERPES N DEMENTIA N SEIZURES/EPILEPSY N HEADACHES/MIGRAINES N VASCULAR DISEASE N PACEMAKER N Blood Disorder N DIZZINESS N KIDNEY DISEASE N HEART DISEASE/HEART PROBLEMS N MULTIPLE SCLEROSIS N CARDIAC ARRHYTHMIA N CANCER: SPECIFY N Gall Stones N ATRIAL FIBRILLATION N PULMONARY EMBOLISM N AUTOIMMUNE DISEASE N Gynecological HistoryNo gynecological history recorded. Obstetrics History GPAL:G 2 P 2 0 0 1 Type Value Full Term 2 Living 1 Total 2 Past Encounters Encounter ID Performer Location Encounter Start Date Encounter Closed Date Diagnosis/Indication Diagnosis SNOMED-CT Code Diagnosis ICD10 Code Diagnosis Note [id number] [facility] [place] [address] [facility] [address] [place] [address] 05/14/2021 00:00:00 05/14/2021 13:57:13 [id number] [facility] [address], [address] [address] 06/18/2022 00:00:00 07/07/2022 20:16:25 [id number] Robson Mulligan DPM [facility] [address], [address] [address] 07/29/2023 11:19:28 07/31/2023 09:42:12 Pain of right ankle joint [id number] M25.571 injection right ankle todayobtai n xraysrice therapyno strenuous exercising follow up in 3 weeks [id number] Robson Mulligan DPM [facility] [address], [address] [address] 08/19/2023 09:27:37 08/19/2023 10:15:20 Pain of right ankle joint [id number] M25.571 injection right ankle todayrevie wed xrays- neg for acute findingsri ce therapyRX physical therapyno strenuous exercising follow up in 1 month Health Concerns Section Related Observation LastModified by Organization Detai ls LastModified Time None Recorded Concern Status LastModified by Organization Details LastModified Time None Recorded Advance Directives Directive Y: Payers Encounter Date Sequence Insurance Name Policy Number Policy Wharton Covered Member ID Wharton Member ID Guarantor Name 07/29/2023 1 [facility] (MEDICARE REPLACEMENT/A DVANTAGE - PPO) [id number] Lorenza Serrano [id number] Lorenza Serrano 08/19/2023 1 [facility] (MEDICARE REPLACEMENT/A DVANTAGE - PPO) [id number] Lorenza Cohen Zach [id number] Lorenza Serrano Notes Date Note Type Note Provider Name and Address Organization Details Recorded Time 07/29/2023 text/html Patient is an 88-year-old female hoop in the office with complaints of right ankle pain. Patient denies any injury of the ankle and states that she has pain with range of motion and with walking. Patient states this started a few days ago she denies any swelling or redness. Patient denies any recent illnesses. Patient denies any other complaints. Robson Mulligan DPM [address], [place], [address], [employer] 07/31/2023 09:39:24 08/19/2023 text/html . Patient is an 88-year-old female who returns the office for follow up on right ankle pain. Patient underwent a right ankle injection at last visit on 07/29. Patient states the injection did help with her discomfort. Patient denies any acute signs of affection post injection. Patient states her pain continues to be intermittent when standing or walking. Patient had x-rays which were negative for any acute injury of the ankle. Patient denies any other complaints. Robson Mulligan DPM [address], [place], [address], [employer] 08/19/2023 10:00:11 OBGyn Episode No OBEpisode recorded.
[2024-09-01 11:40] LABS: Basophils Percent Auto 0.5 % (0.2-1.2); Eosinophils Absolute Auto 0.2 K/mm3 (0-0.3); Eosinophils Percent Auto 2.8 % (0-4.4); Hematocrit 39.5 % (37.0-47.0); Hemoglobin 12.6 g/dL (12.0-15.0); Immature Granulocyte Absolute 0.02 K/mm3 (0.00-0.031); Immature Granulocyte Percent A 0.3 % (0-0.5); Lymphocytes Absolute Auto 1.14 K/mm3 (0.9-3.2); Lymphocytes Percent Auto 17.7 % (18.3-44.2); Mean Corpuscular HGB Conc 31.9 g/dl (32-36); Mean Corpuscular Hemoglobin 30.2 pg (26-34); Mean Corpuscular Volume 94.7 fl (80-100); Monocytes Absolute Auto 0.8 K/mm3 (0.1-0.6); Monocytes Percent Auto 12.7 % (2.6-8.5); Neutrophils Absolute Auto 4.3 K/mm3 (1.3-6.7); Platelet Count Result 195 k/mm3 (150-375); Red Blood Count 4.17 M/mm3 (4.2-5.4); Red Cell Distribution Width 12.9 % (11.5-14.5); White Blood Count 6.4 K/mm3 (4.5-10.0)
[2024-09-01 11:46] LABS: Add Urine Microscopic? YES; Appearance Urine Clear (Clear); Bacteria Urine None Seen /hpf; Bilirubin Urine Negative (Negative); Blood Urine 1+ (Negative); Color Urine Yellow (Yellow); Glucose Urine UA Negative (Negative); Ketones Urine Trace mg/dL (Negative); Leukocyte Esterase Ur Trace LEU/UL (Negative); Nitrate Urine Negative (Negative); Non Pathogenic Casts 0-2; Protein Urine Negative (Negative); Specific Grav Ur 1.019 (1.001-1.035); Squamous Epithelial Cell Urine None Seen /hpf (Few); WBC Urine 0-5 /hpf (0-3); pH Urine 5.5 (5.0-9.0)
[2024-09-01 11:48] LABS: Hemoglobin A1C 5.8 % (<5.7)
[2024-09-01 11:52] LABS: Alanine Aminotransferase 15 U/L (6-35); Albumin Level 3.8 g/dL (3.5-5.1); Alkaline Phosphatase 95 U/L (38-126); Anion Gap 7 mmol/L (4-12); Aspartate Amino Transferase 19 U/L (14-36); Bilirubin,Total 0.9 mg/dL (0.2-1.3); Blood Urea Nitrogen 18 mg/dL (7-17); Calcium 8.9 mg/dL (8.4-10.2); Carbon Dioxide 28 mmol/L (22-30); Chloride 102 mmol/L (98-107); Cholesterol 121 mg/dL (0-200); Estimated Glomerular Filt Rate 54; Glucose 119 mg/dL (65-110); HDL Direct 58 mg/dL; Potassium 4.2 mmol/L (3.4-5.0); Sodium 137 mmol/L (137-145); Triglycerides 72 mg/dL (<150)
[2024-09-01 12:04] LABS: LDL Cholesterol Direct 37 mg/dL
== END 2024-09-01 09:30 | disposition home or self-care (01) ==
PROVIDERS: Nurse Practitioner Family; PCP Family Medicine; Visit Provider Family Medicine
DX: R73.01 Impaired fasting glucose (principal); I10 Essential (primary) hypertension; E78.2 Mixed hyperlipidemia; I25.10 Atherosclerotic heart disease of native coronary artery without angina pectoris; R53.83 Other fatigue; I73.9 Peripheral vascular disease, unspecified
CPT/HCPCS: 36415; 80053; 80061; 81001; 83036; 84443; 85025; 93925

== ENCOUNTER 2024-09-30 09:52 | Outpatient (CLI) | payer MEDICARE, SELFPAY ==
[2024-09-30 10:44] LABS: Alanine Aminotransferase 15 U/L (6-35); Alkaline Phosphatase 85 U/L (38-126); Anion Gap 9 mmol/L (4-12); Aspartate Amino Transferase 21 U/L (14-36); Bilirubin,Total 0.9 mg/dL (0.2-1.3); Blood Urea Nitrogen 21 mg/dL (7-17); Calcium 9.1 mg/dL (8.4-10.2); Carbon Dioxide 25 mmol/L (22-30); Chloride 105 mmol/L (98-107); Cholesterol 147 mg/dL (0-200); Estimated Glomerular Filt Rate 58; Glucose 118 mg/dL (65-110); HDL Direct 71 mg/dL; Potassium 4.5 mmol/L (3.4-5.0); Sodium 139 mmol/L (137-145); Triglycerides 73 mg/dL (<150)
--- OUTSIDE RECORDS SUMMARY | 2024-09-30 10:58 | XMS_ITS | Data Portability ---
Author Organization [place] - [facility] [employer], Main Office Address [address] [place] [address] Assessment Encounter Date Assessment Date Assessment LastModified by Organization Details LastModified Time 07/29/2023 07/29/2023 This note is dictated and transcribed by [employer]. Die Repair Machinist variances may occur. Despite proofreading, typographical errors may occur. Occasional wrong-word or s ound-a-like substitutions may have occurred due to the [...] or more view 2023 024 barb Gomes [facility] [place], [address] [place] [address] Rd, [address], [place], [address], 4 09:40:27 XR, ankle, 3 or more view - podiatry to read 2023 024 [email or web address] [facility] (Imaging), [address], [place], [address], 4 08:12:38 Medication Orders diclofenac sodium 75 mg tablet,alisha yed release 03/12/ 2024 03/12/2 024 VIANCA [facility], [facility] [address], [facility] [address], [place], [place], [address], 4 09:39:25 Patient TargetsNo targets recorded. Patient [...] humer us No observ ation record ed. [id number] Not Available 08/07/2022 04:44:25 08/19/19 24 XR, ankle , 3 or more view No observ ation record ed. [email or web address] [facility] [place] [address] [facility], [address], [place], [address], 08/19/2023 09:40:26 Result Notes None recorded. Problems Name Problem SNOMED Code Status Onset Date Resolution Date Notes Provider Name and Address Organization Details Recorded Time Pain of right ankle joint [id number] 300039 Active 2023 Robson Mulligan, DPM [address] [facility], [facility] [address], [place], [address] , [facility] 4 11:54:10 Menopausa l symptom 24367549 Active Not Available [facility] 3 04:36:42 Gastroeso phageal reflux disease 524448582 Active Not Available [facility] 3 04:36:42 Knee pain Active Not Available [facility] 3 04:36:42 Dyslipide cruz 473856310 Active Not Available [facility] 3 04:36:42 Malignant neoplasm of skin 479238351 Active 2016 Not Available [facility] 3 04:36:42 Malignant neoplasm of skin 879250038 Completed 201601/22/2017 Not Available [facility] 3 04:36:42 Osteoarth ritis 727833379 Active Not Available [facility] 3 04:36:42 Ingrowing toenail 390856717 Active 2020 Not Available [facility] 3 04:36:42 Onychomyc osis of toenails 779361819 Active 2022 Not Available [facility] 3 04:36:42 Bunion 382318131 Active 2022 Not Available [facility] 3 04:36:42 Coronary arteriosc lerosis 92652155 Active Not Available [facility] 3 04:36:42 Essential hypertens ion 56494214 Active Not Available [facility] 3 04:36:42 Vulvitis 99162984 Active Not Available [facility] 3 04:36:42 Candidias is of vagina 63560794 Completed Not Available [facility] 3 04:36:42 Notes:heart stent Problem Notes None recorded. Procedures Surgical History Date Name Laterality Status Provider Name and Address Organization Details Recorded Time 07/29/19 24 Cortisone Injection Ankle-Right completed Robson Mulligan DPM [address] [facility], [facility] [address], [place], [address], [facility] [employer] [facility] 07/29/2023 11:56:09 Wrist arthroscopy/surg malachi completed Not Available [facility] 08/07/2022 04:31:39 Appendectomy completed Not Available [facility] 08/07/2022 04:31:39 Breast Biopsy completed Not Available [facility] 08/07/2022 04:31:39 Foot Surgery completed Not Available [facility] 08/07/2022 04:31:39 total abdominal hysterectomy with bilateral salpingo-oophore ctomy completed Not Available [facility] 08/07/2022 04:31:39 Cardiac Stent Placement completed Not Available [facility] 08/07/2022 04:31:39 Imaging Results Imaging Date Name Status LastModified by Organiz ation Details LastModified Time 12/17/2021 XR, humerus completed [id number] Information not available 08/07/2022 04:44:25 08/19/2023 XR, ankle, 3 or more view completed [email or web address] [facility] [place] [address], [address], [place], [address], 08/19/2023 09:40:26 Procedure Notes None recorded. Medical [...] Not Available ID NOW COVID-19 Test Kit [id number] 2 03/13 completed Not Available Not Available Not Available aspirin 81 mg capsule Take 1 capsule every day by oral route. active Not Available Not Available No t Available Paxlovid 150 mg-100 mg tablets in a dose pack (Moderate Renal Dose) TAKE 1 TABLET BY MOUTH TWICE [...] % 130 mm[Hg] 61 mm[Hg] Roselyn FONG [place] [employer] [facility] 4 11:28:36 Date Recorded Heart rate Respiratory rate Oxygen saturation Oxygen saturation in Arterial blood by Pulse oximetry Systolic blood pressure Diastolic blood pressure Provider Name and Address Organization Details Last Updated DateTime 4 80 /min 14 /min 98 % 98 % 148 mm[Hg] 70 mm[Hg] Roselyn FONG [place] [employer] [facility] 4 09:38:16 Social History Question Answer Notes LastModified by Organizat ion Details LastModified Time Tobacco Smoking Status Never Smoker Not Available [employer] 08/07/2022 04:14:42 Do You Have An Advance Directive? Yes [id number] Information not available 08/07/2022 What Is Your Level Of Alcohol Consumption? None [id number].[id number] Information not available 08/07/2022 What Is Your Level Of Caffeine Consumption? None [id number] Information not available 08/07/2022 How Much Tobacco Do You Chew? None MIGRATION.[id number] Information not available 08/07/2022 In The 14 Days Before Symptom Onset, Have You Had Close Contact With A Laboratory-confir med COVID-19 While That Case Was Ill? No [id number].[id number] Information not available 08/07/2022 In The 14 Days Before Symptom Onset, Have You Had Close Contact With A Person Who Is Under Investigation For COVID-19 While That Person Was Ill? No [id number] Information not available 08/07/2022 What Type Of Diet Are You Following? REGULAR [id number].[id number] 0703 Information not available 08/07/2022 Which Illicit Or Recreational Drugs Have You Used? None [id number].[id number] Information not available 08/07/2022 Do You Or Have You Ever Used E-cigarettes Or Vape? Never Used Electronic Cigarettes [id number].[id number] Information not available 08/07/2022 What Is Your Occupation? Retired MIGRATION.357402 3682 Information not available 08/07/2022 Are There Any Guns Present In Your Home? No [id number].989165 2023 Information not available 08/07/2022 Do You Or Have You Ever Used Smokeless Tobacco? Never Used Smokeless Tobacco [id number].[id number] Information not available 08/07/2022 How Much Tobacco Do You Smoke? No MIGRATION.697083 5889 Information not available 08/07/2022 Do You Use Sunscreen Routinely? Yes MIGRATION.[id number] 0604 Information not available 08/07/2022 How Many Years Have You Smoked Tobacco? 0 MIGRATION.333777 1801 Information not available 08/07/2022 Sex: Unknown Functional Status Question Answer Note LastModified by Organizat ion Details LastModified Time What is your exercise level? None [id number] Information not available 08/07/2022 Mental Status None recorded. Family History Relationship Description Onset Age of this Age Resolved Age Notes LastModified by Organization Details LastModified Time Mother Heart disease [id number] Not available 08/07/2022 04:31:43 Father Pulmonary emphysema [id number] Not available 08/07/2022 04:31:43 Medical History Condition Response NERVE DISEASE N BLINDNESS N RHEUMATIC FEVER N KIDNEY STONES N BLADDER PROBLEMS N MRSA N OTHER # 1 N POLIO N LUNG DISEASE/DISORDER Y RADIATION / CHEMOTHERAPY N COPD N Other # 2 N BLOOD DISEASES N EAR OR HEARING PROBLEMS N MUMPS N BOWEL PROBLEMS N DEPRESSION (INCLUDING POST ) N STROKE/TIA N ULCERS N BENIGN PROSTATIC HYPERPLASIA N MEASLES N MYOCARDIAL INFARCTION Y OBESITY N GERD/NAUSEA Y ANEURYSM N URINARY/BLADDER/KIDNEY PROBLEMS Y CORONARY ARTERY DISEASE (CAD) Y ADDICTION CONCERNS N ENDOMETRIOSIS N Impotence N USE OF BLOOD THINNERS N SKIN [...] APNEA N CHICKENPOX N INFECTIOUS DISEASE N HEART ARRHYTHMIA N PROSTATE N INSOMNIA N HYPERTHYROIDISM N EYE PROBLEMS N EDEMA N CHRONIC PAIN SYNDROME N HYPOTHYROIDISM N CAROTID BLOCKAGE N CONSTIPATION N BACK / NECK PROBLEMS N ATHEROSCLEROSIS N BREAST PROBLEMS N DIALYSIS N ECZEMA N OSTEOPOROSIS N ARTHRITIS Y APPENDICITIS N DIABETES, TYPE N BAD TEETH N ENT N HEARTBURN / REFLUX N AUTISM SPECTRUM DISORDER (ASD) N HEPATITIS / LIVER DISEASE N GOUT N SLEEP DISORDER N ALZHEIMER'S DISEASE N Brain Problems N HERPES N DEMENTIA N HEADACHES/MIGRAINES N SEIZURES/EPILEPSY N VASCULAR DISEASE N PACEMAKER N Blood Disorder N DIZZINESS N HEART DISEASE/HEART PROBLEMS N KIDNEY DISEASE N MULTIPLE SCLEROSIS N CARDIAC ARRHYTHMIA N CANCER: SPECIFY N ATRIAL FIBRILLATION N Gall Stones N PULMONARY EMBOLISM N AUTOIMMUNE DISEASE N Gynecological HistoryNo gynecological history recorded. Obstetrics History GPAL:G 2 P 2 0 0 1 Type Value Full Term 2 Living 1 Total 2 Past Encounters Encounter ID Performer Location Encounter Start Date Encounter Closed Date Diagnosis/Indication Diagnosis SNOMED-CT Code Diagnosis ICD10 Code Diagnosis Note [id number] [facility] [place] [address] [facility] [address] [place] [address] 05/14/2021 00:00:00 05/14/2021 13:57:13 [id number] [facility] [address], [address] [address] 06/18/2022 00:00:00 07/07/2022 20:16:25 [id number] Robson Mulligan DPM [facility] [address], [address] [address] 07/29/2023 11:19:28 07/31/2023 09:42:12 Pain of right ankle joint 4105863658 8754753 M25.571 injection right ankle todayobtai n xraysrice therapyno strenuous exercising follow up in 3 weeks [id number] Robson Mulligan DPM [facility] [address], [address] [address] 08/19/2023 09:27:37 08/19/2023 10:15:20 Pain of right ankle joint [id number] M25.571 injection right ankle todayrevie wed xrays- [...] Wharton Member ID Guarantor Name 07/29/2023 1 [facility] (MEDICARE REPLACEMENT/A DVANTAGE - PPO) [id number] Lorenza Serrano [id number] Lorenza Serrano 08/19/2023 1 [facility] (MEDICARE REPLACEMENT/A DVANTAGE - PPO) [id number] Lorenza Serrano [id number] Lorenza Serrano Notes Date Note Type Note [...] any other complaints. Robson Mulligan DPM [address], [address], [place], [address], Check 07/31/2023 09:39:24 08/19/2023 text/html . Patient is [...] any other complaints. Robson Mulligan DPM [address] [employer], [address], [place], [address], Check 08/19/2023 10:00:11 OBGyn Episode No OBEpisode recorded.
--- OUTSIDE RECORDS SUMMARY | 2024-09-30 10:58 | XMS_ITS | Clinical Summary ---
Author Organization [facility] Address [address] [place] [address] Care Team Providers Care Able Seaman Name Role Phone Eladio Roblero MD Unavailable [phone] Anival Olsen MD Primary Care Provider [phone] Allergies No known active allergies Medications vitamin B-12 (CYANOCOBALAMIN) 1000 mcg tablet Take 1 tablet (1,000 mcg total) by mouth daily. Active ondansetron 4 [...] 90 tablet 3 4 10/16/19 25 Active nitroglycerin (NITROSTAT) 0.4 MG SL tabletIndications: Chest pain Place 1 tablet (0.4 mg total) [...] MOUTH DAILY 100 capsule 2 5 Active famotidine (PEPCID) 20 MG tablet Take 1 tablet (20 mg total) by mouth daily. HOLDING as of 09/24/24 5 Active omeprazole (PRILOSEC) 20 MG capsule Take 1 capsule (20 mg total) by mouth daily. 30 capsule 5 Active aspirin EC 81 MG EC tablet Take 1 tablet (81 mg total) by mouth daily. 09/25/19 25 Discontin ued(Patie nt Discharge ) famotidine (PEPCID) 20 MG tablet Take 1 tablet (20 mg total) by mouth daily. 1 tablet 4 09/25/19 25 Discontin ued(Reord er) isosorbide mononitrate ER (IMDUR) 60 MG 24 hr tablet Take 1 tablet (60 mg total) by mouth daily. 90 tablet 2 4 09/25/19 25 Discontin ued(Patie nt Discharge ) Active Problems Problem Noted Date Diagnosed Date Palpitations 03/26/2024 Premature atrial complexes 08/08/2022 Hyperlipidemia, unspecified hyperlipidemia type 09/28/2018 Coronary stent patent 09/28/2018 Shortness of breath 07/31/2018 Class 1 obesity due to exces s calories without serious comorbidity with body mass index (BMI) of 34.0 to 34.9 in adult 07/31/2018 Hypertensive heart disease without heart failure 07/31/2018 Coronary artery disease Myocardial infarct ([facility]) Encounters Date Type Department Care Team Description 09/24/2024 1:30 PM CDT Office Visit [facility] [address] Eladio Roblero MD Coronary Artery Disease (6mo follow up) 09/24/2024 Telephone [facility] - [address] [address] Ankur Sierra RMA Schedule Test (EM) 09/24/2024 Travel from Last 3 Months Family History Medical [...] on file 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 Gender Identity Not on file Sexual Orientation Not on file Occupation Industry Job Start Date Job End Date Not on file Not on file Not on file Not on file Last Filed Vital Signs Vital Sign Reading Time Taken Comments Blood Pressure 124/64 09/24/2024 1:56 PM CDT Pulse 81 09/24/2024 1:56 PM CDT Temperature 36.6 C (97.9 F) 10/16/2023 8:31 AM CDT Respiratory Rate 17 10/16/2023 2:15 PM CDT Oxygen Saturation 98% 09/24/2024 1:56 PM CDT Inhaled Oxygen Concentration - - Weight 86.2 kg (190 lb) 09/24/2024 1:56 PM CDT Height 157.5 cm (5' 2 ) 09/24/2024 1:56 PM CDT Body Mass Index 34.75 09/24/2024 1:56 PM CDT Plan of Treatment Upcoming Encounters Date Type Department Care Team (Late st Contact Info) Description 10/04/2024 12:15 PM CDT Telephone [facility] [address] [facility] [place] [address] Eladio Roblero MD 3 [facility] [address] [place] [address] 03/25/2025 11:30 AM CDT Office Visit [facility] [address] Eladio Roblero MD 3 [facility] [address] [place] [address] Health Maintenance Due Date Last Done Comments DTaP, Tdap and Td Vaccines ( 1 - Tdap) 1954 Pneumococcal Vaccine: 50+ Ye ars (1 of 2 - PCV) 1955 Zoster Vaccines (1 of 2) 1986 Annual Medicare Wellness Visit 2001 RSV Immunization or 60+ Years (1 - 1-dose 75+ series) 2011 COVID-19 Vaccine (2 - 2023-2 5 season) 2024 08/25/2020 PHQ-2 (Physician [place]) 06/09/2024 Meningococcal B Vaccine Aged Out No l onger eligible based on patient's age to complete this topic Meningococcal Vaccine Aged Out No vahid jin eligible based on patient's age to complete this topic RSV Immunizations Under 20 Months Aged Out No longer eligible based on patient's age to complete this topic Insurance Advance Directives * Full Code (Latest Code Status on File) Date Activated Date Inactivated Comments 10/16/2023 10:55 AM 10/16/2023 4:48 PM Care Teams Able Seaman Relationship Specialty Start Date End Date Anival Olsen MD [address] [address] [address] [place] [address] PCP - General FAMILY PRACTICE 04/05/21 Eladio Roblero MD 3 [facility] [address] [place] [address] [place] Chemical Sprayer CARDIOVASCULAR DISEASE 07/15/18
--- OUTSIDE RECORDS SUMMARY | 2024-09-30 10:58 | XMS_ITS | Encounter Summary ---
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 Gender Identity Not on file Sexual Orientation Not on file Occupation Industry Job Start Date Job End Date Not on file Not on file Not on file Not on file documented as of this encounter Plan of Treatment Upcoming Encounters Date Type Department Care Team (Late st Contact Info) Description 10/04/2024 12:15 PM CDT Telephone [facility] [address] [facility] [address] [place] [address] Eladio Roblero MD 3 [facility] [address] [place] [address] 03/25/2025 11:30 AM CDT Office Visit [facility] [address] [address] Eladio Roblero MD 3 [facility] [address] [place] [address] documented as of this encounter Procedures Procedure Name Priority Date/Time Associated Diagnosis Comments CBC (OUTSIDE LAB) Routine 06/16/2020 COMPREHENSIVE METABOLIC PANEL Routine 06/16/2020 LIPID PANEL Routine 06/16/2020 COMPREHENSIVE METABOLIC PANEL Routine 12/27/2019 LIPID PANEL Routine 12/27/2019 HEMOGLOBIN, GLYCOSYLATED Routine 12/27/2019 COMPREHENSIVE METABOLIC PANEL Routine 09/29/2018 LIPID PANEL Routine 09/29/2018 documented in this encounter Results * LIPID PANEL (06/16/2020) CHOLESTEROL 158 HDL 77 TRIGLYCERIDES 87 LDL (CALCULATED) 64 06/16/2020 us Doc [facility] Final Result * CBC (OUTSIDE LAB) (06/16/2020) WBC 5.1 HGB 13.1 HCT 39.9 PLT [...] Final Result * COMPREHENSIVE METABOLIC PANEL (12/27/2019) Pathologist [facility] SODIUM S/P/B 136 137 - 145 POTASSIUM [...] LABORATORY Final Result * HEMOGLOBIN, GLYCOSYLATED (12/27/2019) Pathologist [facility] HGB A1C 5.8 4.0 - 6.0 % [...] TOTAL PROTEIN S/P/B 6.0 GLOBULIN 2.3 09/29/2018 Doc [facility] Edited Resul t - Final * LIPID PANEL (09/29/2018) CHOLESTEROL 136 HDL 71 TRIGLYCERIDES 73 LDL (CALCULATED) 50 09/29/2018 us Doc [facility] Final Result documented in this encounter Visit Diagnoses Not on filedocumented in this encounter Care Teams Garbage Pick Up Man Relationship Specialty Start Date End Date Yandel Covington MD [address] [address] PCP - General INTERNAL MEDICINE 07/11/18 04/04/21 Anival Olsen MD [address] [place] [address] [address] [place] [address] PCP - General FAMILY PRACTICE 04/05/21 Elaido Roblero MD 3 [facility] [address] [place] [address] Fiordaliza [employer] P[employer] Gauger CARDIOVASCULAR DISEASE 07/15/18 documented as of this encounter
[2024-09-30 11:00] LABS: LDL Cholesterol Direct 46 mg/dL
== END 2024-09-30 09:53 | disposition home or self-care (01) ==
PROVIDERS: PCP Family Medicine; Referring Provider Internal Medicine Cardiovascular Disease; Visit Provider Nurse Practitioner Family
DX: I25.10 Atherosclerotic heart disease of native coronary artery without angina pectoris (principal); E78.2 Mixed hyperlipidemia; R73.01 Impaired fasting glucose; I11.9 Hypertensive heart disease without heart failure; Z95.5 Presence of coronary angioplasty implant and graft
CPT/HCPCS: 36415; 80053; 80061; 83036

== ENCOUNTER 2025-01-20 11:09 | Emergency (ER) | payer MEDICARE, SELFPAY ==
[2025-01-20] VITALS (13 sets, daily range): BP systolic 99–145; BP diastolic 51–74; PULSE 77–87; RESP 13–24; TEMP 37; O2SAT 96–100
--- NOTE | ~2025-01-20 | XR_ITS ---
EXAMINATION: XR chest 2V DATE: 01/20/2025 12:08 INDICATION: Chest pressure and COPD. TECHNIQUE: PA and lateral views of the chest were obtained. COMPARISON: None FINDINGS: The lungs are clear with no focal airspace opacities, pulmonary edema, pleural effusion or pneumothor ax. The cardiomediastinal silhouette is normal. There are couple coronary artery stents. Mild thoraci c spondylosis. Collection of multiple calcific lesions anteriorly in the right upper quadrant consist ent with gallstones. IMPRESSION: 1. No acute cardiopulmonary disease. 2. Cholelithiasis. Reviewed, dictated and finalized at location A.
--- NOTE | ~2025-01-20 | CT_ITS ---
EXAMINATION: CTA chest PE protocol DATE: 01/20/2025 13:27 INDICATION: Shortness of breath TECHNIQUE: Computed tomography (CT) pulmonary angiogram of the chest was performed with 100 mL Omnipa que-350 intravenous contrast. Additional 3D reconstructions utilizing coronal maximum intensity proje ction (MIP) were performed. Automated exposure control and iterative reconstruction technique were em ployed. The dose-length product was 411.82 mGy-cm. COMPARISON: None FINDINGS: No pulmonary embolism. Mosaic attenuation in the dependent lower lungs likely related to combination of mild subsegmental atelectasis and intervening air trapping related to small airway disease. Calcif ied right lower lobe nodule along with calcified right hilar and mediastinal lymph nodes consistent w ith old granulomatous disease. No pneumonia, pulmonary edema or pleural effusion. Heart size is dominik l. Atherosclerotic coronary artery calcifications and likely coronary artery stenting. No pericardial effusion. Thoracic aorta is normal in caliber with no dissection. No pathologically enlarged thoraci c lymphadenopathy. Numerous calcified gallstones layering in the dependent aspect of the otherwise no rmal-appearing gallbladder. Subcentimeter low-attenuation hepatic cyst. 7 cm cyst at the lower pole o f the left kidney. Moderate spondylosis of the lower cervical, upper thoracic and upper lumbar spine with bridging osteophytes at multiple levels in the thoracic spine consistent with diffuse idiopathic skeletal hyperostosis (DISH). IMPRESSION: 1. No pulmonary embolism or other acute cardiopulmonary disease. 2. Cholelithiasis. Reviewed, dictated and finalized at location A.
--- OUTSIDE RECORDS SUMMARY | 2025-01-20 11:28 | XMS_ITS | Encounter Summary ---
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 Gender Identity Not on file Sexual Orientation Not on file Occupation Industry Job Start Date Job End Date Not on file Not on file Not on file Not on file documented as of this encounter Plan of Treatment Upcoming Encounters Date Type Department Care Team (Late st Contact Info) Description 03/25/2025 11:30 AM CDT Office Visit [facility] [address] Eladio Roblero MD 3 [facility] [address] [place] [address] documented as of this encounter Procedures [...] on filedocumented in this encounter Care Teams Ferruler Relationship Specialty Start Date End Date Yandel Covington MD PCP - General INTERNAL MEDICINE 07/11/18 04/04/21 Anival Olsen MD [address] [place] [address] [address] [place] [address] PCP - General FAMILY PRACTICE 04/05/21 Eladio Roblero MD 3 [facility] [address] [place] [address] [place] Assistant Case Manager CARDIOVASCULAR DISEASE 07/15/18 documented as of this encounter
--- OUTSIDE RECORDS SUMMARY | 2025-01-20 11:28 | XMS_ITS | Clinical Summary ---
Author Organization [facility] Address [address] [place] [address] Care Team Providers Care Counter Top Maker Name Role Phone Eladio Roblero MD Unavailable [phone] Mic Olsen MD Primary Care Provider [phone] Allergies No known active allergies Medications vitamin [...] 3 (three) times daily as needed. Active nitroglycerin (NITROSTAT) 0.4 MG SL tabletIndications:C hest pain Place 1 tablet (0.4 mg total) under the tongue every 5 (five) minutes as needed for Chest Pain. Max of 3 doses, after third dose call 911 25 tablet 1 4 Active atorvastatin (LIPITOR) 40 MG tablet [...] by mouth daily. 30 capsule 5 Active clopidogrel (PLAVIX) 75 MG tablet Take 1 tablet (75 mg total) by mouth daily. 90 tablet 1 5 Active carvedilol (COREG) 6.25 MG tablet TAKE 1 TABLET BY MOUTH TWICE DAILY 200 tablet 2 5 Active Active Problems Problem Noted [...] failure 07/31/2018 Coronary artery disease Myocardial infarct ([facility]) Encounters Date Type Department Care Team Description 11/17/2024 Results Follow-Up [facility] Family & Internal Medicine [address] [address] Cassidy Ayala, RN CLINIC - OUTPATIENT EVENT RECORDER (ECG) UP TO 30 DAYS COMPLETE (Holter) from Last 3 Months Family History Medical [...] on file 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 Gender Identity Not on file Sexual Orientation [...] 1:56 PM CDT Height 157.5 cm (5' 2) 09/24/2024 1:56 PM CDT Body Mass Index 34.75 09/24/2024 1:56 PM CDT Plan of Treatment Upcoming Encounters Date Type Department Care Team (Late st Contact Info) Description 03/25/2025 11:30 AM CDT Office Visit [facility] [phone] Eladio Roblero MD [address] [place] [address] [place] [phone] Health Maintenance Due Date Last Done Comments DTaP, Tdap and Td Vaccines (1 - Tdap) 1954 Pneumococcal Vaccine: 50+ Years (1 of 2 - PCV) 1955 Zoster Vaccines (1 of 2) 1986 Annual Medicare Wellness Visit 2001 RSV Immunization or 60+ Years (1 - 1-dose 75+ series) 2011 COVID-19 Vaccine (2 - season) 2024 08/25/2020 PHQ-2 (Physician [place]) 06/09/2024 ASCVD LDL 10/15/2024 10/16/2023, 06/10, 06/16/2020, Additional history exists Meningococcal B Vaccine Aged Out No l onger eligible based on patient's age to complete this topic Meningococcal Vaccine Aged Out No vahid jin eligible based on patient's age to complete this topic RSV Immunizations Under 20 Months Aged Out No longer eligible based on patient's age to complete this topic Procedures Procedure Name Priority Date/Time Associated Diagnosis Comments EVENT RECORDER (ECG) UP TO 30 DAYS COMPLETE Routine 11/17/2024 3:36 PM CDT Palpitations LIPID PANEL Routine 10/16/2023 6:28 AM CDT Coronary artery disease from Last 3 Months or Most Recently Relevant to Health Maintenance Results * CLINIC - OUTPATIENT EVENT RECORDER (ECG) UP TO 30 DAYS COMPLETE (Holter) (11/17/2024 3:36 PM CDT) Narrative [facility] - 11/17/2024 3:36 PM CDT EVENT MONITOR REPORT Patient Name: Lorenza Serrano : 1935 Peer Specialist Date: 10-12-24 Performed At: [place], [place] Interpreting Gear Tester: Dr. Roblero PCP: MIC OLSEN MD INDICATION: palpitations DURATION OF MONITORIN days NUMBER OF TRANSMISSIONS: 11 INTERPRETATION: Sinus rhythm, rate 61 - 136 , average 82 No pauses 11 patient - generated recordings with no symptoms recorded- sinus rhythm , rate varying from 82 - 109 with no arrhythmia MI 0.16, QRS 0.08 , QTc 0.40 Low frequency PVCs with couplets ; no ventricular tachycardia Low frequency PACs No atrial fibrillation or atrial flutter 12 short runs of nonsustained SVT- 1.9 seconds rate 170, 7.6 sec. rate 130, 1.3 seconds rate 174, 5.8 seconds rate 130, 2.6 sec, rate 185, 1.5 sec. Rate 180, 12.3 sec. Rate 120, 11.3 sec. Rate 160, 10.2 sec. Rate 140, 6.4 sec. Rate 165, 1.4 sec. Rate 170, 2.0 sec. Rate 197 CONCLUSION: Sinus rhythm Low frequency PVCs,PACS with short runs of nonsustained SVT ; no atrial fibrillation us Eladio Roblero MD CV VASCULAR ORDERABLES Final Result [facility] * LIPID PANEL (10/16/2023 6:28 AM CDT) CHOLESTEROL 156 <200 MG/DL 10/16/2023 7:08 AM CDT [facility] TRIGLYCERIDES 110 <150 MG/DL 10/16/2023 7:08 AM CDT [facility] HDL 74 >40.0 MG/DL 10/16/2023 7:08 AM CDT [facility] LDL (CALCULATED) 60 <100 MG/DL 10/16/19 7:08 AM CDT [facility] NON HDL CHOLESTEROL 82 <130 MG/DL 10/15 7:08 AM T [facility] CHOL/HDL RATIO 2.1 0.0 - 4.5 10/16/2023 7:08 AM CDT [facility] VLDL CALCULATION 22 5 - 55 MG/DL 10/16/2023 7:08 AM T [facility] LIPID INTERPRETATION 10/16/2023 7:08 AM T [facility] Comment: [facility] CONCENSUS REPORT RECOMMENDATIONS: ADULT CHILD LOW RISK: CHOLESTEROL <200 <170 TRIGLYCERIDE <150 --- HDL >=60 --- LDL <100 <110 BORDERLINE: CHOLESTEROL 200-239 170-199 TRIGLYCERIDE 150-199 --- HDL 40-59 --- LDL 100-159 110-129 HIGH RISK: CHOLESTEROL >=240 >=200 TRIGLYCERIDE >=200 --- HDL <40 --- LDL >=160 >=130 10/16/2023 6:28 AM CDT us Norbert Camacho MD LABORATORY Final Result [facility] [address] [place] [address], [place] [phone] from Last 3 Months or Most Recently Relevant to Health Maintenance Insurance [facility] Member Subscriber Plan / Payer (Ef fective 2018-Present) Name:Lorenza Serrano Relation to Subscriber:Self Name:Lorenza Serrano Payer ID:[id number] (NAIC) Type:Not on file Address: [place] [phone] Advance Directives * Full Code (Latest Code Status on File) Date Activated Date Inactivated Comments 10/16/2023 10:55 AM 10/16/2023 4:48 PM Care Teams Counter Top Maker Relationship Specialty Start Date End Date Mic Olsen MD [address] [place] [address] [address] [place] [address] PCP - General FAMILY PRACTICE 04/05/21 Eladio Roblero MD [address] [facility] [address] [place] [address] [place] Gear Tester CARDIOVASCULAR DISEASE 07/15/18
--- NOTE | 2025-01-20 11:30 | ECG_ITS ---
Test Date: 2025-01-20 11:41:34 Measurements Intervals [place] Rate: 82 P: 7 GA: 143 QRS: 9 QRSD: 84 T: 20 QT: 363 QTc: 426 Interpretive Statements SINUS RHYTHM BASELINE ARTIFACT- I, III, AVR, AVL, AVF, V4-V6 NORMAL ECG No previous ECG available for comparison Electronically Signed On 01-20-2025 12:29:55 CDT by Joseph De Anda D.O.
[2025-01-20 11:56] LABS: Hematocrit 40.1 % (37.0-47.0); Hemoglobin 13.3 g/dL (12.0-15.0); Immature Granulocyte Percent A 0.2 % (0-0.5); Lymphocytes Absolute Auto 1.83 K/mm3 (0.9-3.2); Mean Corpuscular HGB Conc 33.2 g/dl (32-36); Mean Corpuscular Hemoglobin 30.2 pg (26-34); Mean Corpuscular Volume 90.9 fl (80-100); Nucleated Red Blood Cells Absolute Auto 0.000 K/mm3 (0.0-0.012); Nucleated Red Blood Cells Perc 0.0 % (0.0-0.2); Platelet Count Result 229 k/mm3 (150-375); Red Blood Count 4.41 M/mm3 (4.2-5.4); White Blood Count 5.9 K/mm3 (4.5-10.0)
--- NOTE | 2025-01-20 12:11 | ED_ITS ---
HPI - SOB/Dyspnea General Chief Complaint: Shortness of Breath/Dyspnea Stated Complaint: breathing problems Time Seen by Provider: 01/20/25 12:01 History of Present Illness HPI Narrative: This is an 89-year-old female with history of CAD status post stents x2, hypertension, hyperlipidemia, CKD who presents to the ED for shortness of breath and chest pain. Patient states that for the past few days, she has been having intermittent worsening of her shortness of breath. She states that she does feel out of breath just sitting in bed at this time. She has had some chest heaviness. She has had this in the past but she was never sent for. Number bedside say that she has been seen CHF previously but patient denies being on any kind of diuretics. Patient did just complete an antibiotic for a UTI couple days ago. She states she called her PCP today who advised that she come to the ED for further evaluation. Related Data Home Medications ?Medication ?Instructions ?Recorded ?Confirmed ?Last Taken ?Type aspirin 81 mg tablet,delayed 81 mg PO DAILY 03/05/21 09/21/24 Unknown History release (Adult Low Dose Aspirin) atorvastatin 20 mg tablet 20 mg PO DAILY 03/05/21 09/21/24 Unknown History carvedilol 6.25 mg tablet 6.25 mg PO Q12H 03/05/21 09/21/24 Unknown History isosorbide dinitrate 30 mg tablet 30 mg PO . q.a.m. 03/05/21 09/21/24 Unknown History nitroglycerin 0.4 mg sublingual 0.4 mg sublingual Q5M PRN chest 03/05/21 09/21/24 Unknown History tablet pain omeprazole 20 mg capsule,delayed 20 mg PO DAILY 03/05/21 09/21/24 Unknown History release ramipril 10 mg capsule 10 mg PO DAILY 09/05/22 09/21/24 Unknown History polyethylene glycol 3350 17 17 g PO DAILY 03/24/23 09/21/24 Unknown History gram/dose oral powder (Miralax) Allergies Allergy/AdvReac Type Severity Reaction Status Date / Time No Known Allergies Allergy Verified 04/17/22 08:23 Review of Systems 2 Review of Systems: Gen.: Denies fevers or chills Eyes: Denies eye pain or visual change ENT: Denies congestion Respiratory: Shortness of breath CV: Chest heaviness GI: Denies abdominal pain nausea, emesis or diarrhea denies burning, urgency, frequency or hematuria Musculoskeletal: Denies back pain or muscle pain Neuro: Denies numbness, tingling, weakness or focal weakness Skin: Denies rash Except as documented, all other systems reviewed and negative [facility] Past Medical History Medical History (Updated 01/20/25 @ 15:48 by Ken Hernandez MD) UTI (urinary tract infection) At moderate risk for fall (~12/2021) fall with right shoulder fracture. At low risk for fall At low risk for fall Breast cancer screening by mammogram Renal insufficiency, mild (07/05/21) BUN 22, creatinine 1.14 with GFR 44 on 07/05/2021. BUN 24, creatinine 1.06 with GFR 53 on 07/31/2022.BUN 22, creatinine 0.93 with GFR 57 on 02/06/2023. BUN 21, creatinine 1.0 with GFR 52 on 08/19/2023. BUN 23 with creatinine 1.0 on 10/07/2023. Chronic kidney disease (CKD) stage G3a/A1, moderately decreased glomerular filtration rate (GFR) between 45-59 mL/min/1.73 square meter and albuminuria creatinine ratio less than 30 mg/g BUN 22, creatinine 1.14 with GFR 44 on 07/05/2021. BUN 24, creatinine 1.06 with GFR 53 on 07/31/2022.BUN 22, creatinine 0.93 with GFR 57 on 02/06/2023. BUN 21, creatinine 1.0 with GFR 52 on 08/19/2023. BUN 23 with creatinine 1.0 on 10/07/2023. BUN 18, creatinine 0.98, GFR 54 on 09/01/2024. BUN 21, creatinine 0.91 with GFR 58 on 09/30/2024. Acute non-recurrent maxillary sinusitis Intermittent claudication Arterial Doppler of the lower extremities on 09/01/2024 reveals normal flow in the left with decreased flow in the right posterior tibial artery. Paresthesia of both feet Bilateral knee pain Flu-like symptoms Chronic constipation Chronic low back pain with right-sided sciatica Acute bronchitis (05/15/22) Essential hypertension BMI 35.0-35.9,adult Obesity (BMI 30-39.9) Fracture of humerus, proximal, right, closed (12/14/21) primarily involved greater tuberosity COVID-19 (12/02/21) fully vaccinated and positive test 12/03/21 . Tested positive for COVID 06/16/2023. Microscopic hematuria (07/05/21) No blood on urinalysis 07/31/2022. 1+ blood on urinalysis 08/19/2023. 1+ blood and 6-10 RBCs on urinalysis 09/01/2024. Benign paroxysmal positional vertigo due to bilateral vestibular disorder Arthritis, lumbar spine Osteopenia after menopause significant osteopenia on x-ray of the lumbar spine 03/05/2021 . Bone density study on 06/05/2021 with T-score -0.5 of the lumbar spine, minus 0.8 left hip and -1.6 right femur Osteoarthritis of both hips (03/05/21) severe osteoarthritis of both hips x-ray 03/05/2021 Nausea Mixed hyperlipidemia total cholesterol 166, HDL 70, triglycerides 86, LDL 79 on 07/05/2021. Cholesterol 156, triglycerides 86, HDL 71, LDL 68 on 07/31/2022. Cholesterol 157, triglycerides 71, HDL 77, LDL 66 on 02/06/2023. Cholesterol 156, HDL 69, LDL 66 on 08/19/2023. Cholesterol 156, triglycerides 110, HDL 74, LDL 60 on 10/16/2023. Cholesterol 121, triglycerides 72, HDL 58, LDL 37 on 09/01/2024. cholesterol 147, triglycerides 73, HDL 71, LDL 46 on 09/30/2024. Abnormal fasting glucose fasting glucose 107 with hemoglobin A1c 6.1 on 06/16/2020. Glucose 117 with hemoglobin A1c 5.9 on 07/05/2021. Fasting glucose 112 with hemoglobin A1c 5.8 on 07/31/2022. Glucose 104 with hemoglobin A1c 6.0 on 02/06/2023. Fasting glucose 116 with hemoglobin A1c 5.8 on 08/19/2023. Glucose 110 on 10/07/2023. Fasting glucose 118 with hemoglobin A1c 5.8 and GFR 54 on 09/01/2024. Fasting glucose 118 with hemoglobin A1c 6.0 and GFR 58 on 09/30/2024. Seasonal allergic rhinitis BMI 34.0-34.9,adult Acute low back pain with right-sided sciatica (~02/12/21) diffuse degenerative disc disease and arthritic changes on x-ray 03/05/2021 with osteopenia Heart attack History of frequent headaches GERD (gastroesophageal reflux disease) COPD (chronic obstructive pulmonary disease) no history of tobacco use CAD (coronary artery disease) acute [place] with stenting of the LAD in 2005. Screening CELSO 1.35 in the right and 1.22 in the left on 03/24/2023. Surgical History Surgical History History of knee surgery right patellectomy many years ago right total knee replacement with total patellar replacement 2000 Family History Family History (Updated 12/02/23 @ 11:52 by Alicia Andres RN) Father Cancer CAD (coronary artery disease) Mother Diabetes mellitus Heart disease Hypertension CAD (coronary artery disease) Son Classical hemophilia Hepatitis Social History Social History Smoking status: Never smoker Alcohol intake: current Alcohol use details: wine rarely Substance use: never Substance use type: does not use Current Housing: Decline to Answer Concerned About Future Housing: Decline to Answer Difficulty Paying Gas/Electric Bills: Decline to Answer Difficulty Paying for Meds: Decline to Answer Currently Unemployed: Decline to Answer Education: Decline to Answer Difficulty w/ Childcare or Family Care: Decline to Answer Gender identity (if verbalized by the patient): Female Exam 2 Narrative: APPEARANCE: No acute distress, nontoxic, resting in bed EYES: EOMI HEENT: Normocephalic, atraumatic, OMM RESPIRATORY: Speaking in 3-4 word sentences. Tachypneic. Clear to auscultation bilaterally with no rhonchi wheezing or rales. CARDIOVASCULAR: Regular rate and rhythm without murmurs rubs or gallops. ABDOMINAL: Soft, nontender, nondistended, no rebound or guarding MUSCULOSKELETAl: Moves all extremities. No clubbing, cyanosis or edema. NEURO: Awake and alert. Following commands, speech normal, no focal deficits SKIN:: Warm, dry. No rashes lesions or abrasions PSYCHIATRIC: Normal affect/mood, Course Vital Signs Vital signs: Vital Signs Temperature 98.6 F 01/20/25 11:27 Pulse Rate 87 01/20/25 11:27 Respiratory Rate 24 H 01/20/25 11:27 Blood Pressure 145/59 H 01/20/25 11:27 Pulse Oximetry 99 01/20/25 11:27 Oxygen Delivery Room Air 01/20/25 11:27 Temperature 98.6 F 01/20/25 11:27 Pulse Rate 83 01/20/25 15:47 Respiratory Rate 15 01/20/25 15:47 Blood Pressure 99/51 L 01/20/25 15:47 Pulse Oximetry 98 01/20/25 15:47 Oxygen Delivery Room Air 01/20/25 11:51 MDM - SOB/Dyspnea MDM Narrative Medical decision making narrative: 81-year-old female presenting for shortness of breath. Heart and lungs are clear. She was somewhat tachypneic. No edema to the bilateral lower extremities. Chest x-ray showed no acute process. BNP was only slightly elevated. There is potential concerns for PE given that there is no other obvious cause of her shortness of breath this time. CTA chest showed no evidence of PE. Troponins negative. Patient was given a DuoNeb and she did have mild improvement of her shortness of breath. Suspect she may have a mild COPD exacerbation. She will be given prednisone. She was advised to follow-up with her PCP in the next week for evaluation. Patient was agreeable to plan. Given strict return precautions. Differential Diagnosis Differential diagnosis: Likely acute exacerbation of chronic obstructive airways disease, congestive heart failure, community acquired pneumonia, pulmonary embolism and other (ACS) Lab Data Attestation: I reviewed the patient's lab results. 01/20/25 11:45 01/20/25 11:45 Labs: Lab Results 01/20/25 01/20/25 01/20/25 Range/Units 11:45 13:51 13:51 WBC 5.9 (4.5-10.0) K/mm3 RBC 4.41 (4.2-5.4) M/mm3 Hgb 13.3 (12.0-15.0) g/dL Hct 40.1 (37.0-47.0) % MCV 90.9 (80-100) fl MCH 30.2 (26-34) pg MCHC 33.2 (32-36) g/dl RDW 12.6 (11.5-14.5) % Plt Count 229 (150-375) k/mm3 MPV 8.9 (7.4-10.4) fl Immature Gran % (Auto) 0.2 (0-0.5) % Neut % (Auto) 54.8 (45.5-73.1) % Lymph % (Auto) 30.9 (18.3-44.2) % [place] % (Auto) 9.5 H (2.6-8.5) % Eos % (Auto) 3.9 (0-4.4) % Baso % (Auto) 0.7 (0.2-1.2) % Lymph # (Auto) 1.83 (0.9-3.2) K/mm3 [place] # (Auto) 0.6 (0.1-0.6) K/mm3 Eos # (Auto) 0.2 (0-0.3) K/mm3 Baso # (Auto) 0.0 (0.0-0.1) K/mm3 Abs Immat Gran (auto) 0.01 (0.00-0.031) K/mm3 Absolute Neuts (auto) 3.3 (1.3-6.7) K/mm3 Absolute Nucleated RBC 0.000 (0.0-0.012) K/mm3 Nucleated RBC % 0.0 (0.0-0.2) % Sodium 135 L (137-145) mmol/L Potassium 4.4 (3.4-5.0) mmol/L Chloride 105 (98-107) mmol/L Carbon Dioxide 22 (22-30) mmol/L Anion Gap 8 (4-12) mmol/L BUN 26 H (7-17) mg/dL Creatinine 0.93 (0.7-1.0) mg/dL Estim Creat Clear Calc 37 ml/min Estimated GFR 57 L (59 - ) Glucose 135 H (65-110) mg/dL Calcium 9.3 (8.4-10.2) mg/dL Total Bilirubin 0.6 (0.2-1.3) mg/dL AST 26 (14-36) U/L ALT 16 (6-35) U/L Alkaline Phosphatase 107 (38-126) U/L Troponin I < 0.012 < 0.012 (0.000-0.034) ng/mL NT-Pro-B Natriuret Pep Cancelled 116 H Total Protein 6.5 (6.3-8.2) g/dL Albumin 3.9 (3.5-5.1) g/dL Imaging Data Radiologist's impression: Impressions Chest X-Ray 01/20/25 12:09 IMPRESSION: 1. No acute cardiopulmonary disease. 2. Cholelithiasis. Chest CTA 01/20/25 14:09 IMPRESSION: 1. No pulmonary embolism or other acute cardiopulmonary disease. 2. Cholelithiasis. ECG Data EKG #1: Attestation: I personally reviewed and interpreted this ECG as follows: ECG completion date: 01/20/25 ECG completion time: 11:41 Prior ECG tracings: not available for review EKG Interpretation: normal rate, sinus rhythm, no ectopy, no ST changes, normal QT and no acute changes Discharge Plan Discharge Clinical Impression: Essential hypertension COPD (chronic obstructive pulmonary disease) Qualifiers: COPD type: unspecified COPD Qualified Code(s): J44.9 - Chronic obstructive pulmonary disease, unspecified Patient Disposition: Home Condition: Stable Instructions: Antibiotic Form, COPD (Chronic Obstructive Pulmonary Disease) (ED) Additional Instructions: Follow up with PCP and zigzag machine operator. More likely your COPD is the cause of your symptoms. Patient Language: Venezuelan Prescriptions: New prednisone 20 mg tablet 20 mg PO DAILY Qty: 5 0RF No Action omeprazole 20 mg capsule,delayed release(DR/EC) 20 mg PO DAILY carvedilol 6.25 mg tablet 6.25 mg PO Q12H Rx Instructions: must administer with a meal/food atorvastatin 20 mg tablet 20 mg PO DAILY aspirin [Adult Low Dose Aspirin] 81 mg tablet,delayed release (DR/EC) 81 mg PO DAILY nitroglycerin 0.4 mg tablet, sublingual 0.4 mg sublingual Q5M PRN (Reason: chest pain) Rx Instructions: do not exceed 3 doses per episode isosorbide dinitrate 30 mg tablet 30 mg PO . q.a.m. Rx Instructions: allow nitrate-free interval of 12-14 hrs per 24-hr period ramipril 10 mg capsule 10 mg PO DAILY Patient Comments: prescribed by zigzag machine operator polyethylene glycol 3350 [Miralax] 17 gram/dose powder 17 g PO DAILY Patient Comments: titrate daily dose for easy bowel movement daily lidocaine 5 % adhesive patch,medicated 1 patch topical DAILY Qty: 30 11RF Rx Instructions: leave on most painful area for up to 12 hrs fluticasone propion-salmeterol [Advair Diskus] 100-50 mcg/dose blister with device 1 inh inhalation Q12H Qty: 60 5RF Rx Instructions: rinse and spit after each use. fluticasone propionate [Flonase Allergy Relief] 50 mcg/actuation spray,suspension 1 spray intranasal BID Qty: 16 11RF Rx Instructions: administer into each nostril Follow-up/Referrals: Anival Olsen MD [Primary Care Provider] -
[2025-01-20 12:13] LABS: Alanine Aminotransferase 16 U/L (6-35); Albumin Level 3.9 g/dL (3.5-5.1); Alkaline Phosphatase 107 U/L (38-126); Anion Gap 8 mmol/L (4-12); Aspartate Amino Transferase 26 U/L (14-36); Bilirubin,Total 0.6 mg/dL (0.2-1.3); Blood Urea Nitrogen 26 mg/dL (7-17); Calcium 9.3 mg/dL (8.4-10.2); Carbon Dioxide 22 mmol/L (22-30); Chloride 105 mmol/L (98-107); Estimated CRCL calculation 37 ml/min; Estimated Glomerular Filt Rate 57; Glucose 135 mg/dL (65-110); Potassium 4.4 mmol/L (3.4-5.0); Sodium 135 mmol/L (137-145); Total Protein 6.5 g/dL (6.3-8.2)
--- OUTSIDE RECORDS SUMMARY | 2025-01-20 12:18 | XMS_ITS | Encounter Summary ---
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 Gender Identity Not on file Sexual Orientation Not on file Occupation Industry Job Start Date Job End Date Not on file Not on file Not on file Not on file documented as of this encounter Plan of Treatment Upcoming Encounters Date Type Department Care Team (Late st Contact Info) Description 03/25/2025 11:30 AM CDT Office Visit [facility] [address] Eladio Roblero MD [address] [facility] [address] [place] [phone] documented as of this encounter Procedures [...] on filedocumented in this encounter Care Teams Central Service Tech Relationship Specialty Start Date End Date Yandel Covington MD PCP - General INTERNAL MEDICINE 07/11/18 04/04/21 Anival Olsen MD [address] [place] [address] [address] [place] [address] PCP - General FAMILY PRACTICE 04/05/21 Eladio Roblero MD [address] [facility] [address] [place] [phone] [place] Gas Tester CARDIOVASCULAR DISEASE 07/15/18 documented as of this encounter
--- OUTSIDE RECORDS SUMMARY | 2025-01-20 12:18 | XMS_ITS | Clinical Summary ---
Author Organization [facility] Address [address] [place] [address] Care Team Providers Care Airline Customer Service Agent Name Role Phone Eladio Roblero MD Unavailable [phone] Mic Olsen MD Primary Care Provider [phone] Allergies No known active allergies Medications vitamin [...] failure 07/31/2018 Coronary artery disease Myocardial infarct ([facility]) Encounters Date Type Department Care Team Description 11/17/2024 Results Follow-Up [facility] Family & Internal Medicine [address] [address] Cassidy Ayala, RN CLINIC - OUTPATIENT EVENT [...] on file 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 Gender Identity Not on file Sexual Orientation [...] Description 03/25/2025 11:30 AM CDT Office Visit [facility] [address] Eladio Roblero MD [address] [place] [address] [place] [address] Health Maintenance Due Date Last Done Comments DTaP, Tdap and Td Vaccines (1 - Tdap) 1954 Pneumococcal Vaccine: 50+ Years (1 of 2 - PCV) 1955 Zoster Vaccines (1 of 2) 1986 Annual Medicare Wellness Visit 2001 RSV Immunization or 60+ Years (1 - 1-dose 75+ series) 2011 COVID-19 Vaccine (2 - season) 2024 08/25/2020 PHQ-2 (Physician [place]) 06/09/2024 ASCVD LDL 10/15/2024 10/16/2023, 06/10, 06/16/2020, [...] COMPLETE (Holter) (11/17/2024 3:36 PM CDT) Narrative [facility] - 11/17/2024 3:36 PM CDT EVENT MONITOR REPORT Patient Name: Lorenza Serrano : 1935 Rf Manager Date: 10-12-24 Performed At: [place], [place] Interpreting Milk Pasteurizer: Dr. Roblero PCP: MIC OLSEN MD INDICATION: palpitations DURATION OF MONITORIN days NUMBER OF TRANSMISSIONS: 11 INTERPRETATION: Sinus rhythm, rate 61 - 136 , average 82 No pauses 11 patient - generated recordings with no symptoms recorded- sinus rhythm , rate varying from 82 - 109 with no arrhythmia VA 0.16, QRS 0.08 , QTc 0.40 Low [...] MD CV VASCULAR ORDERABLES Final Result DEVORA Five minutes * LIPID PANEL (10/16/2023 6:28 AM CDT) CHOLESTEROL 156 <200 MG/DL 10/16/2023 7:08 AM CDT [facility] TRIGLYCERIDES 110 <150 MG/DL 10/16/2023 7:08 AM CDT [facility] HDL 74 >40.0 MG/DL 10/16/2023 7:08 AM CDT [facility] LDL (CALCULATED) 60 <100 MG/DL 10/16/19 7:08 AM CDT [facility] NON HDL CHOLESTEROL 82 <130 MG/DL 10/15 7:08 AM T [facility] CHOL/HDL RATIO 2.1 0.0 - 4.5 10/16/2023 7:08 AM CDT [facility] VLDL CALCULATION 22 5 - 55 MG/DL 10/16/2023 7:08 AM T [facility] LIPID INTERPRETATION 10/16/2023 7:08 AM T [facility] Comment: [facility] CONCENSUS REPORT RECOMMENDATIONS: ADULT CHILD LOW RISK: CHOLESTEROL <200 <170 TRIGLYCERIDE <150 --- HDL >=60 --- LDL <100 <110 BORDERLINE: CHOLESTEROL 200-239 170-199 TRIGLYCERIDE 150-199 --- HDL 40-59 --- LDL 100-159 110-129 HIGH RISK: CHOLESTEROL >=240 >=200 TRIGLYCERIDE >=200 --- HDL <40 --- LDL >=160 >=130 10/16/2023 6:28 AM CDT us Norbert Camacho MD LABORATORY Final Result [facility] [address] [place] [address], [place] [phone] from Last 3 Months or Most Recently Relevant to Health Maintenance Insurance [facility] Member Subscriber Plan / Payer (Ef fective 2018-Present) Name:Lorenza Serrano Relation to Subscriber:Self Name:Lorenza Serrano Payer ID:[id number] (NAIC) Type:Not on file Address: [place] [phone] Advance Directives * Full Code (Latest Code Status on File) Date Activated Date Inactivated Comments 10/16/2023 10:55 AM 10/16/2023 4:48 PM Care Teams Airline Customer Service Agent Relationship Specialty Start Date End Date Mic Olsen MD [address] [place] [address] [address] [place] [address] PCP - General FAMILY PRACTICE 04/05/21 Eladio Roblero MD [address] [facility] [address] [place] [address] [employer] Pasteurizer CARDIOVASCULAR DISEASE 07/15/18
[2025-01-20 14:24] LABS: Troponin I < 0.012 ng/mL (0.000-0.034)
[2025-01-20 14:55] LABS: NT Pro B Type Natriuretic Pept 116 pg/mL (19.9-100); Troponin I < 0.012 ng/mL (0.000-0.034)
[2025-01-20] MEDS: IPRATROPIUM 0.5 MG/ALBUTEROL SULFATE 2.5 MG AMPUL.NEB 3 ML INHALATION (15:33)
--- NOTE | 2025-01-20 16:03 | PC.NURSE ---
Patient ambulated with RN to bathroom. Patients pulse ox 97% while walking.
== END 2025-01-20 16:03 | disposition home or self-care (01) ==
PROVIDERS: Emergency Medicine; Emergency Provider Student in an Organized Health Care Education/Training Program; PCP Family Medicine
DX: J44.9 Chronic obstructive pulmonary disease, unspecified (principal); I12.9 Hypertensive chronic kidney disease with stage 1 through stage 4 chronic kidney disease, or unspecified chronic kidney disease; N18.31 Chronic kidney disease, stage 3a; I25.2 Old myocardial infarction; I25.10 Atherosclerotic heart disease of native coronary artery without angina pectoris; E78.5 Hyperlipidemia, unspecified; E78.2 Mixed hyperlipidemia; M47.816 Spondylosis without myelopathy or radiculopathy, lumbar region; M85.80 Other specified disorders of bone density and structure, unspecified site; M85.88 Other specified disorders of bone density and structure, other site; M16.0 Bilateral primary osteoarthritis of hip; K21.9 Gastro-esophageal reflux disease without esophagitis; Z96.651 Presence of right artificial knee joint; Z95.5 Presence of coronary angioplasty implant and graft; Z86.16 Personal history of COVID-19; Z87.440 Personal history of urinary (tract) infections; Z79.899 Other long term (current) drug therapy; Z79.82 Long term (current) use of aspirin; K80.20 Calculus of gallbladder without cholecystitis without obstruction
CPT/HCPCS: 36415; 71046; 71275; 80053; 83880; 84484; 85025; 93005; 94640; 99284; J7512; Q9967

== ENCOUNTER 2025-02-11 14:35 | Outpatient (CLI) | payer MEDICARE, SELFPAY ==
[2025-02-11 15:26] LABS: NT Pro B Type Natriuretic Pept 242 pg/mL (19.9-100)
== END 2025-02-11 14:36 | disposition home or self-care (01) ==
PROVIDERS: PCP Family Medicine; Visit Provider Internal Medicine Cardiovascular Disease
DX: R06.02 Shortness of breath (principal)
CPT/HCPCS: 36415; 83880

== ENCOUNTER 2025-06-01 13:27 | Emergency (ER) | payer MEDICARE, SELFPAY ==
--- NOTE | ~2025-06-01 | XR_ITS ---
Examination: XR chest 2V Clinical History: SOB, chest heaviness Comparison: 01/20/2025 Technique: PA and Lateral Findings: Cardiomediastinal silhouette normal size and configuration. Lungs clear. No acute bony abnormality. IMPRESSION: 1. No acute cardiopulmonary findings. Reviewed, dictated and finalized at location R. [employer] SERVICES MANAGER
--- OUTSIDE RECORDS SUMMARY | 2025-06-01 13:29 | XMS_ITS | Data Portability ---
Author Organization ID - [facility] [employer] Main Office Address [address] [place] [address] Assessment Encounter Date Assessment Date Assessment LastModified by Organization Details LastModified Time 07/29/2023 07/29/2023 This note is dictated and transcribed by [employer]. Art Supervisor variances may occur. Despite proofreading, typographical errors [...] or more view 2023 024 barb Gomes [facility] [place] [place] [facility] [place], [address] [facility] [address], [place], [address], 4 09:40:27 XR, ankle, 3 or more view - podiatry to read 2023 024 [email or web address] [facility] (Imaging), [address] [facility], [place], [address], 4 08:12:38 Medication Orders diclofenac sodium 75 mg tablet,alisha yed release 2023 024 VIANCA [facility], [address], [address], [place], [place], [phone], 4 09:39:25 Patient TargetsNo targets recorded. Patient [...] humer us No observ ation record ed. [id number] Not Available 08/07/2022 04:44:25 08/19/19 24 XR, ankle , 3 or more view No observ ation record ed. [email or web address] [facility] [address] [facility] [address], [place], [address], 08/19/2023 09:40:26 Result Notes None recorded. Problems Name Problem SNOMED Code Status Onset Date Resolution Date Notes Provider Name and Address Organization Details Recorded Time Menopausa l symptom 28148578 Active Not Available [facility] 3 04:36:42 Gastroeso phageal reflux disease 810562937 Active Not Available [facility] 3 04:36:42 Knee pain Active Not Available [facility] 3 04:36:42 Dyslipide cruz 964430989 Active Not Available [facility] 3 04:36:42 Osteoarth ritis 221250573 Active Not Available [facility] 3 04:36:42 Coronary arteriosc lerosis 04312951 Active Not Available [facility] 3 04:36:42 Essential hypertens ion 73322515 Active Not Available [facility] 3 04:36:42 Vulvitis 29901239 Active Not Available [facility] 3 04:36:42 Candidias is of vagina 70355729 Completed Not Available [facility] 3 04:36:42 Malignant neoplasm of skin 204833183 Completed 201601/22/2017 Not Available [facility] 3 04:36:42 Malignant neoplasm of skin 966514371 Active 2016 Not Available [facility] 3 04:36:42 Ingrowing toenail 139761160 Active 2020 Not Available [facility] 3 04:36:42 Onychomyc osis of toenails 261155251 Active 2022 Not Available [facility] 3 04:36:42 Bunion 791219042 Active 2022 Not Available [facility] 3 04:36:42 Pain of right ankle joint 99718235964 942179 Active 2023 Robson Mulligan DPM [address], [place], [address] , [employer] 4 11:54:10 Notes:heart stent Problem Notes None recorded. Procedures Surgical History Date Name Laterality Status Provider Name and Address Organization Details Recorded Time 07/29/19 24 Cortisone Injection Ankle-Right completed Robson Mulligan DPM [address], [place], [address], [employer] 07/29/2023 11:56:09 Wrist arthroscopy/surg malachi completed Not Available [facility] 08/07/2022 04:31:39 Appendectomy completed Not Available [facility] 08/07/2022 04:31:39 Breast Biopsy completed Not Available [facility] 08/07/2022 04:31:39 Foot Surgery completed Not Available [facility] 08/07/2022 04:31:39 total abdominal hysterectomy with bilateral salpingo-oophore ctomy completed Not Available [facility] 08/07/2022 04:31:39 Cardiac Stent Placement completed Not Available [facility] 08/07/2022 04:31:39 Imaging Results None recorded. Procedure Notes None recorded. Medical Equipment None [...] Not Available ID NOW COVID-19 Test Kit [id number] 2 03/13 completed Not Available Not Available [...] Not Available Vitals Date Recorded Oxygen saturation Heart rate Respiratory rate Systolic And Diastolic Provider Name and Address Organization Details Last Updated DateTime 06/18/2022 98 % 109 /min 14 /min 103/61 mm[Hg] Not Available [facility] 3 04:33:54 Date Recorded Heart rate Respiratory rate Oxygen saturation Systolic And Diastolic Provider Name and Address Organization Details Last Updated DateTime 07/29/2023 84 /min 14 /min 98 % 130/61 mm[Hg] Roselyn Smith ID [email or web address] [facility] [employer] 4 11:28:36 Date Recorded Heart rate Respiratory rate Oxygen saturation Systolic And Diastolic Provider Name and Address Organization Details Last Updated DateTime 08/19/2023 80 /min 14 /min 98 % 148/70 mm[Hg] Roselyn Smith [facility] [employer] 4 09:38:16 Social History Question Answer Notes LastModified by Organizat ion Details LastModified Time Tobacco Smoking Status Never Smoker Not Available [facility] 08/07/2022 04:14:42 Do You Have An Advance Directive? Yes [id number] Information not available 08/07/2022 What Is Your Level Of Caffeine Consumption? None [id number] Information not available 08/07/2022 How Much Tobacco Do You Chew? None [id number] 026 Information not available 08/07/2022 In The 14 Days Before Symptom Onset, Have You Had Close Contact With A Laboratory-confirm ed COVID-19 While That Case Was Ill? No [id number] Information not available 08/07/2022 In The 14 Days Before Symptom Onset, Have You Had Close Contact With A Person Who Is Under Investigation For COVID-19 While That Person Was Ill? No [id number] Information not available 08/07/2022 What Type Of Diet Are You Following? REGULAR [id number] 026 Information not available 08/07/2022 Which Illicit Or Recreational Drugs Have You Used? None [id number] Information not available 08/07/2022 Are There Any Guns Present In Your Home? No [id number] 026 Information not available 08/07/2022 How Much Tobacco Do You Smoke? No [id number] Information not available 08/07/2022 Do You Use Sunscreen Routinely? Yes [id number] Information not available 08/07/2022 How Many Years Have You Smoked Tobacco? 0 [id number] Information not available 08/07/2022 Sex: Unknown Functional Status Question Answer Note LastModified by Organizat ion Details LastModified Time What is your level of alcohol consumption? None [id number] Information not available 08/07/2022 Do you or have you ever used smokeless tobacco? Never used smokeless tobacco [id number] 026 Information not available 08/07/2022 What is your occupation? retired [id number] 026 Information not available 08/07/2022 Do you or have you ever used e-cigarettes or vape? Never used electronic cigarettes [id number] 026 Information not available 08/07/2022 What is your exercise level? None [id number] 026 Information not available 08/07/2022 Mental Status None recorded. Family History Relationship Description Onset Age of this Age Resolved Age Notes LastModified by Organization Details LastModified Time Mother Heart disease [id number] Not available 08/07/2022 04:31:43 Father Pulmonary emphysema [id number] Not available 08/07/2022 04:31:43 Medical History Condition [...] Diagnosis SNOMED-CT Code Diagnosis ICD10 Code Diagnosis IMO Codes Diagnosis Note [id number] [facility] Ken Little [address] [place] [address] 05/14/2021 00:00:00 05/14/2021 13:57:13 [id number] Robson Mulligan DPM [facility] [address] [facility] [address] [place] [address] 06/18/2022 00:00:00 07/07/2022 20:16:25 [id number] Robson Mulligan DPM [facility] [address] [facility] [address] [place] [address] 07/29/2023 11:19:28 07/31/2023 09:42:12 Pain of right ankle joint [id number] 8367287 M25.571 injection right ankle todayobtai n xraysrice therapyno strenuous exercising follow up in 3 weeks [id number] Robson Mulligan DPM [facility] [address] [facility] [address] [place] [address] 08/19/2023 09:27:37 08/19/2023 10:15:20 Pain of right ankle joint 5976634574 8888064 M25.571 injection right ankle todayrevie wed xrays- neg for acute findingsri ce therapyRX physical therapyno strenuous exercising follow up in 1 month Health Concerns Section Related Observation LastModified by Organization Detai ls LastModified Time None Recorded Concern Status LastModified by Organization Details LastModified Time None Recorded Advance Directives Directive Y: Payers Insurance Date Sequence Insurance Name Policy Number Policy Wharton Covered Member ID Wharton Member ID Guarantor Name 08/19/2023 1 [facility] (MEDICARE REPLACEMENT/A DVANTAGE - PPO) [id number] Lorenza Serrano [id number] Lorenza Serrano Notes Date Note Type Note [...] any other complaints. Robson Mulligan DPM [address] [facility], [facility] [address], [place], [address], [facility] [employer] 07/31/2023 09:39:24 08/19/2023 text/html . Patient is [...] any other complaints. Robson Mulligan DPM [address] [place] [address], [place], [address], [place] [facility] [employer] 08/19/2023 10:00:11 OBGyn Episode No OBEpisode recorded.
--- OUTSIDE RECORDS SUMMARY | 2025-06-01 13:29 | XMS_ITS | Clinical Summary ---
Author Organization [facility] Address [address] [place] [address] Care Team Providers Care Bobtailer Name Role Phone Eladio Roblero MD Unavailable [phone] Anival Olsen MD Primary Care Provider [phone] Allergies No known active allergies Medications vitamin [...] AT BEDTIME 90 tablet 1 5 Active omeprazole (PRILOSEC) 20 MG capsule Take 1 capsule (20 mg total) by mouth daily. 30 capsule 5 Active clopidogrel (PLAVIX) 75 MG tablet Take 1 tablet (75 mg total) by mouth daily. 90 tablet 1 5 Active carvedilol (COREG) 6.25 MG tablet TAKE 1 TABLET BY MOUTH TWICE DAILY 200 tablet 2 5 Active ramipril (ALTACE) 10 MG capsule TAKE 1 CAPSULE BY MOUTH DAILY 100 capsule 5 Active Active Problems Problem Noted Date Diagnosed Date Palpitations 03/26/2024 Premature atrial complexes 08/08/2022 Hyperlipidemia, unspecified hyperlipidemia type 09/28/2018 Coronary stent patent 09/28/2018 Shortness of breath 07/31/2018 Class 1 obesity due to exces s calories without serious comorbidity with body mass index (BMI) of 34.0 to 34.9 in adult 07/31/2018 Hypertensive heart disease without heart failure 07/31/2018 Coronary artery disease Myocardial infarct Family History Medical History Relation Comments Emphysema [...] on file 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 Gender Identity Not on file Sexual Orientation Not on file Occupation Industry Job Start Date Job End Date Not on file Not on file Not on file Not on file Last Filed Vital Signs Vital Sign Reading Time Taken Comments Blood Pressure 124/58 02/11/2025 1:49 PM CDT Pulse 85 02/11/2025 1:49 PM CDT Temperature 36.6 C (97.9 F) 10/16/2023 8:31 AM CDT Respiratory Rate 17 10/16/2023 2:15 PM CDT Oxygen Saturation 97% 02/11/2025 1:49 PM CDT Inhaled Oxygen Concentration - - Weight 86.5 kg (190 lb 12.8 oz) 02/11/2025 1:49 PM CDT Height 157.5 cm (5' 2) 02/11/2025 1:49 PM CDT Body Mass Index 34.9 02/11/2025 1:49 PM CDT Plan of Treatment Upcoming Encounters Date Type Department Care Team (Late st Contact Info) Description 06/10/2025 12:00 PM SCRUB NURSE Office Visit [facility] [id number] Eladio Roblero MD [address] [place] [address] [place] [address] Health Maintenance Due Date Last Done Comments DTaP, Tdap and Td Vaccines (1 - Tdap) 1954 Pneumococcal Vaccine: 50+ Years (1 of 2 - PCV) 1954 Zoster Vaccines (1 of 2) 1986 Annual Medicare Wellness Visit 2001 RSV Immunization or 60+ Years (1 - 1-dose 75+ series) 2011 PHQ-2 (Physician [place]) 06/09/2024 ASCVD LDL 10/15/2024 10/16/2023, 06/10, 06/16/2020, Additional history exists COVID-19 Vaccine ( season) 2025 05/26/2021, 05/26/2021, 09/22/2020, Additional history exists Influenza Adult (#1) 2025 03/30/2024, 04/02/20 23 Hepatitis A Vaccines Aged Out No long er eligible based on patient's age to complete this topic Meningococcal B Vaccine Aged Out No l onger eligible based on patient's age to complete this topic Meningococcal Vaccine Aged Out No vahid jin eligible based on patient's age to complete this topic RSV Immunizations Under 20 Months Aged Out No longer eligible based on patient's age to complete this topic Procedures Procedure Name Priority Date/Time Associated Diagnosis Comments LIPID PANEL Routine 10/16/2023 6:28 AM CDT Coronary artery disease from Last 3 Months or Most Recently Relevant to Health Maintenance Results * LIPID PANEL (10/16/2023 6:28 AM CDT) CHOLESTEROL 156 <200 MG/DL 10/16/2023 7:08 AM CDT [facility] TRIGLYCERIDES 110 <150 MG/DL 10/16/2023 7:08 AM CDT [facility] HDL 74 >40.0 MG/DL 10/16/2023 7:08 AM CDT [facility] LDL (CALCULATED) 60 <100 MG/DL 10/16/19 7:08 AM CDT [facility] NON HDL CHOLESTEROL 82 <130 MG/DL 10/15 7:08 AM T [facility] CHOL/HDL RATIO 2.1 0.0 - 4.5 10/16/2023 7:08 AM CDT [facility] VLDL CALCULATION 22 5 - 55 MG/DL 10/16/2023 7:08 AM T [facility] LIPID INTERPRETATION 10/16/2023 7:08 AM T [facility] Comment: [facility] CONCENSUS REPORT RECOMMENDATIONS: ADULT CHILD LOW RISK: CHOLESTEROL <200 <170 TRIGLYCERIDE <150 --- HDL >=60 --- LDL <100 <110 BORDERLINE: CHOLESTEROL 200-239 170-199 TRIGLYCERIDE 150-199 --- HDL 40-59 --- LDL 100-159 110-129 HIGH RISK: CHOLESTEROL >=240 >=200 TRIGLYCERIDE >=200 --- HDL <40 --- LDL >=160 >=130 10/16/2023 6:28 AM CDT us Norbert Camacho MD LABORATORY Final Result [facility] [address] [place] [address], [place] [phone] from Last 3 Months or Most Recently Relevant to Health Maintenance Insurance Member Subscriber Plan / Payer (Ef fective 2018-Present) Name:Lorenza Serrano Relation to Subscriber:Self Name:Lorenza Serrano Payer ID:[id number] (NAIC) Type:Not on file Address: [place] [phone] Advance Directives * Full Code (Latest Code Status on File) Date Activated Date Inactivated Comments 10/16/2023 10:55 AM 10/16/2023 4:48 PM Care Teams Bobtailer Relationship Specialty Start Date End Date Anival Olsen MD [address] [place] [address] [address] [place] [address] PCP - General FAMILY PRACTICE 04/05/21 Eladio Roblero MD [address] [facility] [address] [place] [address] [place] Cloth Picker CARDIOVASCULAR DISEASE 07/15/18
--- OUTSIDE RECORDS SUMMARY | 2025-06-01 13:29 | XMS_ITS | Encounter Summary ---
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 Gender Identity Not on file Sexual Orientation Not on file Occupation Industry Job Start Date Job End Date Not on file Not on file Not on file Not on file documented as of this encounter Plan of Treatment Upcoming Encounters Date Type Department Care Team (Late st Contact Info) Description 06/10/2025 12:00 PM CARPENTER ASSEMBLER Office Visit [facility] [address] Eladio Roblero MD [address] [facility] [address] [place] [address] documented as of this encounter Procedures Procedure Name Priority Date/Time Associated Diagnosis Comments CBC (OUTSIDE LAB) Routine 06/16/2020 COMPREHENSIVE METABOLIC PANEL Routine 06/16/2020 LIPID PANEL Routine 06/16/2020 COMPREHENSIVE METABOLIC PANEL Routine 12/27/2019 LIPID PANEL Routine 12/27/2019 HEMOGLOBIN GLYCOSYLATED A1C Routine 12/27/2019 COMPREHENSIVE METABOLIC PANEL Routine 09/29/2018 [...] on filedocumented in this encounter Care Teams Internet Cafe Manager Relationship Specialty Start Date End Date Yandel Covington MD PCP - General INTERNAL MEDICINE 07/11/18 04/04/21 Anival Olsen MD [address] [address] [address] [place] [address] PCP - General FAMILY PRACTICE 04/05/21 Eladio Roblero MD 3 [facility] [address] [place] [phone] [place] Recreation Coordinator CARDIOVASCULAR DISEASE 07/15/18 documented as of this encounter
--- NOTE | 2025-06-01 13:32 | ECG_ITS ---
Test Date: 2025-06-01 13:40:23 Measurements Intervals [place] Rate: 89 P: 25 FL: 142 QRS: 10 QRSD: 81 T: 15 QT: 355 QTc: 434 Interpretive Statements SINUS RHYTHM LOW QRS VOLTAGE IN PRECORDIAL LEADS CONSIDER INFERIOR INFARCT, AGE INDETERMINATE BASELINE ARTIFACT- I, II, III, AVR, AVL ABNORMAL ECG Compared to ECG 01/20/2025 11:41:34 Low QRS voltage now present Electronically Signed On 06-01-2025 18:50:54 GEOSPATIAL TECHNOLOGIST by Joseph De Anda D.O.
[2025-06-01 13:57] LABS: Hematocrit 40.4 % (37.0-47.0); Hemoglobin 13.5 g/dL (12.0-15.0); Immature Granulocyte Percent A 0.2 % (0-0.5); Lymphocytes Absolute Auto 1.23 K/mm3 (0.9-3.2); Mean Corpuscular HGB Conc 33.4 g/dl (32-36); Mean Corpuscular Hemoglobin 30.6 pg (26-34); Mean Corpuscular Volume 91.6 fl (80-100); Nucleated Red Blood Cells Absolute Auto 0.000 K/mm3 (0.0-0.012); Nucleated Red Blood Cells Perc 0.0 % (0.0-0.2); Platelet Count Result 210 k/mm3 (150-375); Red Blood Count 4.41 M/mm3 (4.2-5.4); White Blood Count 6.5 K/mm3 (4.5-10.0)
[2025-06-01 14:08] LABS: INR 1.1; Prothrombin Time 13.7 Seconds (11.1-14.7)
[2025-06-01 14:09] LABS: Partial Thromboplastin Time 29.3 Seconds (22.3-36.8)
[2025-06-01 14:14] LABS: Alanine Aminotransferase 17 U/L (6-35); Albumin Level 3.8 g/dL (3.5-5.1); Alkaline Phosphatase 97 U/L (38-126); Anion Gap 6 mmol/L (4-12); Aspartate Amino Transferase 22 U/L (14-36); Bilirubin,Total 0.8 mg/dL (0.2-1.3); Blood Urea Nitrogen 19 mg/dL (7-17); Calcium 9.1 mg/dL (8.4-10.2); Carbon Dioxide 25 mmol/L (22-30); Chloride 105 mmol/L (98-107); Estimated Glomerular Filt Rate 44; Glucose 152 mg/dL (65-110); Lipase 65 U/L (23-300); Potassium 4.4 mmol/L (3.4-5.0); Sodium 136 mmol/L (137-145); Total Protein 6.4 g/dL (6.3-8.2)
[2025-06-01 14:21] VITALS: BP 100/60; PULSE 91; RESP 17; TEMP 36.8; O2SAT 99
[2025-06-01 14:25] LABS: Troponin I < 0.012 ng/mL (0.000-0.034)
--- NOTE | 2025-06-01 16:29 | ED.CHESTPAIN ---
HPI - Chest Pain General Chief Complaint: Chest Pain <DILAN Hardwick Last Filed: 06/01/25 16:37> Stated Complaint: sob x 1 week feels like elephant on chest <DILAN Hardwick Last Filed: 06/01/25 16:37> Time Seen by Provider: 06/01/25 16:30 <DILAN Hardwick Last Filed: 06/01/25 16:37> Focused HPI: Patient is an 89 y/o female, with PMH of COPD, CAD with stents, who presents to the ED with c/o CP/SOB. Patient reports he has had intermittent midsternal chest pain for the past 1 week. Notices it more at night, will wake her up at times. Today, felt like someone was sitting on her chest which prompted her presentation. Also reports increased SOB over the past week, cough productive of yellow/green sputum, sore throat. Denies fever, BLE pain/swelling, sick contacts. Sees Dr. Roblero with cardiology at [facility] GENERAL: Well-appearing, well-nourished, and in no acute distress. HEAD: Normocephalic, atraumatic. CHEST: Clear to auscultation. ?No respiratory distress. HEART: Regular rate and rhythm.? NEURO: ?Alert and oriented x3. Patient screened in triage and initial orders placed.? ?Additional care and disposition to be based upon?diagnostic testing and treatment. <DILAN Hardwick Last Filed: 06/01/25 16:37> Source: patient <DILAN Hardwick Last Filed: 06/01/25 16:37> Mode of arrival: ambulatory <DILAN Hardwick Last Filed: 06/01/25 16:37> Limitations: no limitations <DILAN Hardwick Last Filed: 06/01/25 16:37> History of Present Illness HPI narrative: patient 89-year-old female who presents emergency department chief complaint of shortness of breath and chest tightness the patient reports he has history of COPD reports he has had some intermittent discomfort in her chest for the last week today it has been more constant patient reports noticed lower extremity swelling denies fever reports that she has had a cough that was productive some sputum the patient is concerned that she may have COVID <José Jeffrey MD - Last Filed: 06/01/25 21:17> Related Data Home Medications: Home Medications ?Medication ?Instructions ?Recorded ?Confirmed ?Last Taken ?Type aspirin 81 mg tablet,delayed 81 mg PO DAILY 03/05/21 05/24/25 Unknown History release (Adult Low Dose Aspirin) atorvastatin 20 mg tablet 20 mg PO DAILY 03/05/21 05/24/25 Unknown History carvedilol 6.25 mg tablet 6.25 mg PO Q12H 03/05/21 05/24/25 Unknown History isosorbide dinitrate 30 mg tablet 30 mg PO . q.a.m. 03/05/21 05/24/25 Unknown History nitroglycerin 0.4 mg sublingual 0.4 mg sublingual Q5M PRN chest 03/05/21 05/24/25 Unknown History tablet pain omeprazole 20 mg capsule,delayed 20 mg PO DAILY 03/05/21 05/24/25 Unknown History release ramipril 10 mg capsule 10 mg PO DAILY 09/05/22 05/24/25 Unknown History polyethylene glycol 3350 17 17 g PO DAILY 03/24/23 05/24/25 Unknown History gram/dose oral powder (Miralax) inhalational spacing device 05/24/25 05/24/25 Unknown History (Aerovent Plus spacer) <Jenny Araujo PA-C - Last Filed: 06/01/25 16:37> Allergies/Adverse Reactions: Allergies Allergy/AdvReac Type Severity Reaction Status Date / Time No Known Allergies Allergy Verified 06/01/25 14:23 <Jenny Araujo PA-C - Last Filed: 06/01/25 16:37> Review of Systems Review of Systems: A 10 system review of systems was completed on the patient and is negative except for what is stated in the HPI. Nursing and ancillary documentation was reviewed. <José Jeffrey MD - Last Filed: 06/01/25 21:17> PMFSH Past Medical History Medical History: Medical History UTI (urinary tract infection) At moderate risk for fall (~12/2021) fall with right shoulder fracture. At low risk for fall At low risk for fall Breast cancer screening by mammogram Renal insufficiency, mild (07/05/21) BUN 22, creatinine 1.14 with GFR 44 on 07/05/2021. BUN 24, creatinine 1.06 with GFR 53 on 07/31/2022.BUN 22, creatinine 0.93 with GFR 57 on 02/06/2023. BUN 21, creatinine 1.0 with GFR 52 on 08/19/2023. BUN 23 with creatinine 1.0 on 10/07/2023. Chronic kidney disease (CKD) stage G3a/A1, moderately decreased glomerular filtration rate (GFR) between 45-59 mL/min/1.73 square meter and albuminuria creatinine ratio less than 30 mg/g BUN 22, creatinine 1.14 with GFR 44 on 07/05/2021. BUN 24, creatinine 1.06 with GFR 53 on 07/31/2022.BUN 22, creatinine 0.93 with GFR 57 on 02/06/2023. BUN 21, creatinine 1.0 with GFR 52 on 08/19/2023. BUN 23 with creatinine 1.0 on 10/07/2023. BUN 18, creatinine 0.98, GFR 54 on 09/01/2024. BUN 21, creatinine 0.91 with GFR 58 on 09/30/2024. Acute non-recurrent maxillary sinusitis Intermittent claudication Arterial Doppler of the lower extremities on 09/01/2024 reveals normal flow in the left with decreased flow in the right posterior tibial artery. Paresthesia of both feet Bilateral knee pain Flu-like symptoms Chronic constipation Chronic low back pain with right-sided sciatica Acute bronchitis (05/15/22) Essential hypertension BMI 35.0-35.9,adult Obesity (BMI 30-39.9) Fracture of humerus, proximal, right, closed (12/14/21) primarily involved greater tuberosity COVID-19 (12/02/21) fully vaccinated and positive test 12/03/21 . Tested positive for COVID 06/16/2023. Microscopic hematuria (07/05/21) No blood on urinalysis 07/31/2022. 1+ blood on urinalysis 08/19/2023. 1+ blood and 6-10 RBCs on urinalysis 09/01/2024. Benign paroxysmal positional vertigo due to bilateral vestibular disorder Arthritis, lumbar spine Osteopenia after menopause significant osteopenia on x-ray of the lumbar spine 03/05/2021 . Bone density study on 06/05/2021 with T-score -0.5 of the lumbar spine, minus 0.8 left hip and -1.6 right femur Osteoarthritis of both hips (03/05/21) severe osteoarthritis of both hips x-ray 03/05/2021 Nausea Mixed hyperlipidemia total cholesterol 166, HDL 70, triglycerides 86, LDL 79 on 07/05/2021. Cholesterol 156, triglycerides 86, HDL 71, LDL 68 on 07/31/2022. Cholesterol 157, triglycerides 71, HDL 77, LDL 66 on 02/06/2023. Cholesterol 156, HDL 69, LDL 66 on 08/19/2023. Cholesterol 156, triglycerides 110, HDL 74, LDL 60 on 10/16/2023. Cholesterol 121, triglycerides 72, HDL 58, LDL 37 on 09/01/2024. cholesterol 147, triglycerides 73, HDL 71, LDL 46 on 09/30/2024. Abnormal fasting glucose fasting glucose 107 with hemoglobin A1c 6.1 on 06/16/2020. Glucose 117 with hemoglobin A1c 5.9 on 07/05/2021. Fasting glucose 112 with hemoglobin A1c 5.8 on 07/31/2022. Glucose 104 with hemoglobin A1c 6.0 on 02/06/2023. Fasting glucose 116 with hemoglobin A1c 5.8 on 08/19/2023. Glucose 110 on 10/07/2023. Fasting glucose 118 with hemoglobin A1c 5.8 and GFR 54 on 09/01/2024. Fasting glucose 118 with hemoglobin A1c 6.0 and GFR 58 on 09/30/2024. Seasonal allergic rhinitis BMI 34.0-34.9,adult Acute low back pain with right-sided sciatica (~02/12/21) diffuse degenerative disc disease and arthritic changes on x-ray 03/05/2021 with osteopenia Heart attack History of frequent headaches GERD (gastroesophageal reflux disease) COPD (chronic obstructive pulmonary disease) no history of tobacco use . Chest x-ray 06/01/25. CAD (coronary artery disease) acute AK with stenting of the LAD in 2005. Screening CELSO 1.35 in the right and 1.22 in the left on 03/24/2023. <Jenny Araujo PA-C - Last Filed: 06/01/25 16:37> Surgical History Surgical History: Surgical History History of knee surgery right patellectomy many years ago right total knee replacement with total patellar replacement 2000 <Jenny Araujo PA-C - Last Filed: 06/01/25 16:37> Family History Family History: Family History Father Cancer CAD (coronary artery disease) Mother Diabetes mellitus Heart disease Hypertension CAD (coronary artery disease) Son Classical hemophilia Hepatitis <Jenny Araujo PA-C - Last Filed: 06/01/25 16:37> Social History Social History: Social History Smoking status: Never smoker Alcohol intake: current Alcohol use details: wine rarely Substance use: never Substance use type: does not use Current Housing: Decline to Answer Concerned About Future Housing: Decline to Answer Difficulty Paying Gas/Electric Bills: Decline to Answer Difficulty Paying for Meds: Decline to Answer Currently Unemployed: Decline to Answer Education: Decline to Answer Difficulty w/ Childcare or Family Care: Decline to Answer Gender identity (if verbalized by the patient): Female <DILAN Hardwick Last Filed: 06/01/25 16:37> Exam Narrative: GENERAL: Well-appearing, well-nourished, and in no acute distress. HEAD: Normocephalic, atraumatic. EYES: PERRLA and EOMI. ENT: Nares clear, no rhinorrhea or epistaxis. Mucous membranes moist. NECK: Supple. CHEST: Clear to auscultation. No respiratory distress. HEART: Regular rate and rhythm. No murmur heard. Normal peripheral pulses. ABDOMEN: Soft, nontender, nondistended, normal active bowel sounds. EXTREMITIES: Normal range of motion. No edema. SKIN: Warm, dry, no rash. NEURO: No focal deficits. Alert and oriented x3. PSYCH: Normal mood and affect. <José Jeffrey MD - Last Filed: 06/01/25 21:17> Course Vital Signs Vital signs: Vital Signs Temperature 36.8 C 06/01/25 14:21 Pulse Rate 91 06/01/25 14:21 Respiratory Rate 17 06/01/25 14:21 Blood Pressure 100/60 06/01/25 14:21 Pulse Oximetry 99 06/01/25 14:21 Oxygen Delivery Room Air 06/01/25 14:21 Temperature 36.8 C 06/01/25 14:21 Pulse Rate 72 06/01/25 20:00 Respiratory Rate 12 06/01/25 20:00 Blood Pressure 100/60 06/01/25 14:21 Pulse Oximetry 99 06/01/25 14:21 Oxygen Delivery Room Air 06/01/25 14:21 <Jenny Araujo PA-C - Last Filed: 06/01/25 16:37> Vital Signs Temperature 36.8 C 06/01/25 14:21 Pulse Rate 91 06/01/25 14:21 Respiratory Rate 17 06/01/25 14:21 Blood Pressure 100/60 06/01/25 14:21 Pulse Oximetry 99 06/01/25 14:21 Oxygen Delivery Room Air 06/01/25 14:21 Temperature 36.8 C 06/01/25 14:21 Pulse Rate 72 06/01/25 20:00 Respiratory Rate 12 06/01/25 20:00 Blood Pressure 100/60 06/01/25 14:21 Pulse Oximetry 99 06/01/25 14:21 Oxygen Delivery Room Air 06/01/25 14:21 <José Jeffrey MD - Last Filed: 06/01/25 21:17> MDM MDM Narrative Medical decision making narrative: MSE by MINDI in triage <Jenny Araujo PA-C - Last Filed: 06/01/25 16:37> Differential Diagnosis Differential Diagnosis: differential diagnosis includes ACS, COPD exacerbation, pneumonia, pneumothorax, COVID, flu, RSV COVID test was negative chest x-ray showed no focal infiltrate the initial troponin was negative repeat troponin was negative patient felt better after receiving a nebulizer treatment patient was given a dose of prednisone in the emergency department and discharged home on a steroid pulse <José Jeffrey MD - Last Filed: 06/01/25 21:17> Lab Data Result diagrams: 06/01/25 13:49 06/01/25 13:49 <Jenny Araujo PA-C - Last Filed: 06/01/25 16:37> Labs: Lab Results 06/01/25 06/01/25 06/01/25 Range/Units 13:49 19:17 19:19 WBC 6.5 (4.5-10.0) K/mm3 RBC 4.41 (4.2-5.4) M/mm3 Hgb 13.5 (12.0-15.0) g/dL Hct 40.4 (37.0-47.0) % MCV 91.6 (80-100) fl MCH 30.6 (26-34) pg MCHC 33.4 (32-36) g/dl RDW 12.7 (11.5-14.5) % Plt Count 210 (150-375) k/mm3 MPV 9.0 (7.4-10.4) fl Immature Gran % (Auto) 0.2 (0-0.5) % Neut % (Auto) 66.6 (45.5-73.1) % Lymph % (Auto) 18.9 (18.3-44.2) % [place] % (Auto) 9.7 H (2.6-8.5) % Eos % (Auto) 4.1 (0-4.4) % Baso % (Auto) 0.5 (0.2-1.2) % Lymph # (Auto) 1.23 (0.9-3.2) K/mm3 [place] # (Auto) 0.6 (0.1-0.6) K/mm3 Eos # (Auto) 0.3 (0-0.3) K/mm3 Baso # (Auto) 0.0 (0.0-0.1) K/mm3 Abs Immat Gran (auto) 0.01 (0.00-0.031) K/mm3 Absolute Neuts (auto) 4.4 (1.3-6.7) K/mm3 Absolute Nucleated RBC 0.000 (0.0-0.012) K/mm3 Nucleated RBC % 0.0 (0.0-0.2) % PT 13.7 (11.1-14.7) Seconds INR 1.1 APTT 29.3 (22.3-36.8) Seconds D-Dimer 0.45 (<0.48) ug/mL Sodium 136 L (137-145) mmol/L Potassium 4.4 (3.4-5.0) mmol/L Chloride 105 (98-107) mmol/L Carbon Dioxide 25 (22-30) mmol/L Anion Gap 6 (4-12) mmol/L BUN 19 H (7-17) mg/dL Creatinine 1.16 H (0.7-1.0) mg/dL Estim Creat Clear Calc Not Reportable Estimated GFR 44 L (59 - ) Glucose 152 H (65-110) mg/dL Calcium 9.1 (8.4-10.2) mg/dL Total Bilirubin 0.8 (0.2-1.3) mg/dL AST 22 (14-36) U/L ALT 17 (6-35) U/L Alkaline Phosphatase 97 (38-126) U/L Troponin I < 0.012 < 0.012 (0.000-0.034) ng/mL NT-Pro-B Natriuret Pep 143 H (19.9-100) pg/mL Total Protein 6.4 (6.3-8.2) g/dL Albumin 3.8 (3.5-5.1) g/dL Lipase 65 (23-300) U/L Influenza A (RT-PCR) Negative (Negative) Influenza B (RT-PCR) Negative (Negative) RSV (RT-PCR) Negative (Negative) SARS-CoV-2 RNA (RT-PCR) Negative (Negative) <Jenny Araujo PA-C - Last Filed: 06/01/25 16:37> Lab Results 06/01/25 06/01/25 06/01/25 Range/Units 13:49 19:17 19:19 WBC 6.5 (4.5-10.0) K/mm3 RBC 4.41 (4.2-5.4) M/mm3 Hgb 13.5 (12.0-15.0) g/dL Hct 40.4 (37.0-47.0) % MCV 91.6 (80-100) fl MCH 30.6 (26-34) pg MCHC 33.4 (32-36) g/dl RDW 12.7 (11.5-14.5) % Plt Count 210 (150-375) k/mm3 MPV 9.0 (7.4-10.4) fl Immature Gran % (Auto) 0.2 (0-0.5) % Neut % (Auto) 66.6 (45.5-73.1) % Lymph % (Auto) 18.9 (18.3-44.2) % [place] % (Auto) 9.7 H (2.6-8.5) % Eos % (Auto) 4.1 (0-4.4) % Baso % (Auto) 0.5 (0.2-1.2) % Lymph # (Auto) 1.23 (0.9-3.2) K/mm3 [place] # (Auto) 0.6 (0.1-0.6) K/mm3 Eos # (Auto) 0.3 (0-0.3) K/mm3 Baso # (Auto) 0.0 (0.0-0.1) K/mm3 Abs Immat Gran (auto) 0.01 (0.00-0.031) K/mm3 Absolute Neuts (auto) 4.4 (1.3-6.7) K/mm3 Absolute Nucleated RBC 0.000 (0.0-0.012) K/mm3 Nucleated RBC % 0.0 (0.0-0.2) % PT 13.7 (11.1-14.7) Seconds INR 1.1 APTT 29.3 (22.3-36.8) Seconds D-Dimer 0.45 (<0.48) ug/mL Sodium 136 L (137-145) mmol/L Potassium 4.4 (3.4-5.0) mmol/L Chloride 105 (98-107) mmol/L Carbon Dioxide 25 (22-30) mmol/L Anion Gap 6 (4-12) mmol/L BUN 19 H (7-17) mg/dL Creatinine 1.16 H (0.7-1.0) mg/dL Estim Creat Clear Calc Not Reportable Estimated GFR 44 L (59 - ) Glucose 152 H (65-110) mg/dL Calcium 9.1 (8.4-10.2) mg/dL Total Bilirubin 0.8 (0.2-1.3) mg/dL AST 22 (14-36) U/L ALT 17 (6-35) U/L Alkaline Phosphatase 97 (38-126) U/L Troponin I < 0.012 < 0.012 (0.000-0.034) ng/mL NT-Pro-B Natriuret Pep 143 H (19.9-100) pg/mL Total Protein 6.4 (6.3-8.2) g/dL Albumin 3.8 (3.5-5.1) g/dL Lipase 65 (23-300) U/L Influenza A (RT-PCR) Negative (Negative) Influenza B (RT-PCR) Negative (Negative) RSV (RT-PCR) Negative (Negative) SARS-CoV-2 RNA (RT-PCR) Negative (Negative) <Jsoé Jeffrey MD - Last Filed: 06/01/25 21:17> Imaging Data Radiologist's impression: ITS Impressions Chest X-Ray 06/01/25 14:17 IMPRESSION: 1. No acute cardiopulmonary findings. <Jenny Araujo PA-C - Last Filed: 06/01/25 16:37> ITS Impressions Chest X-Ray 06/01/25 14:17 IMPRESSION: 1. No acute cardiopulmonary findings. <José Jeffrey MD - Last Filed: 06/01/25 21:17> Discharge Plan Discharge Clinical Impression: Chest pain, Acute exacerbation of chronic obstructive pulmonary disease <Jenny Araujo PA-C - Last Filed: 06/01/25 16:37> Patient Disposition: Home <Jenny Araujo PA-C - Last Filed: 06/01/25 16:37> Condition: Stable <DILAN Hardwick Last Filed: 06/01/25 16:37> Instructions: Antibiotic Form, Chest Pain (ED), COPD (Chronic Obstructive Pulmonary Disease) (ED) <DILAN Hardwick Last Filed: 06/01/25 16:37> Patient Language: Bengali <DILAN Hardwick Last Filed: 06/01/25 16:37> Prescriptions: New prednisone 20 mg tablet 40 mg PO DAILY 5 Days Qty: 10 0RF albuterol sulfate 90 mcg/actuation HFA aerosol inhaler 2 puff inhalation QID PRN (Reason: shortness of breath or wheezing) Qty: 8.5 0RF No Action azithromycin 250 mg tablet See Rx Instructions PO .COMPLEX Qty: 6 0RF Rx Instructions: take 500 mg today (day 1), then 250 mg for 4 days (days 2-5) PO (DME) Aerovent Plus Spacer See Rx Instructions .ROUTE Rx Instructions: Use with each inhaler. Full of Vortex chamber. omeprazole 20 mg capsule,delayed release(DR/EC) 20 mg PO DAILY carvedilol 6.25 mg tablet 6.25 mg PO Q12H Rx Instructions: must administer with a meal/food atorvastatin 20 mg tablet 20 mg PO DAILY aspirin [Adult Low Dose Aspirin] 81 mg tablet,delayed release (DR/EC) 81 mg PO DAILY nitroglycerin 0.4 mg tablet, sublingual 0.4 mg sublingual Q5M PRN (Reason: chest pain) Rx Instructions: do not exceed 3 doses per episode isosorbide dinitrate 30 mg tablet 30 mg PO . q.a.m. Rx Instructions: allow nitrate-free interval of 12-14 hrs per 24-hr period ramipril 10 mg capsule 10 mg PO DAILY Patient Comments: prescribed by train brake operator polyethylene glycol 3350 [Miralax] 17 gram/dose powder 17 g PO DAILY Patient Comments: titrate daily dose for easy bowel movement daily lidocaine 5 % adhesive patch,medicated 1 patch topical DAILY Qty: 30 11RF Rx Instructions: leave on most painful area for up to 12 hrs fluticasone propionate [Flonase Allergy Relief] 50 mcg/actuation spray,suspension 1 spray intranasal BID Qty: 16 11RF Rx Instructions: administer into each nostril Breztri Aerosphere 160-9-4.8 mcg/actuation HFA aerosol inhaler 2 inh inhalation BID Qty: 10.7 11RF Rx Instructions: use with spacer her previous Advair was not covered <Jenny Araujo PA-C - Last Filed: 06/01/25 16:37> Follow-up/Referrals: Anival Olsen MD [Primary Care Provider, Family Practice] <Jenny Araujo PA-C - Last Filed: 06/01/25 16:37> Time of Disposition: 21:16 <Jenny Araujo PA-C - Last Filed: 06/01/25 16:37> 21:16 <José Jeffrey MD - Last Filed: 06/01/25 21:17>
[2025-06-01 19:50] LABS: Troponin I < 0.012 ng/mL (0.000-0.034)
[2025-06-01 19:55] VITALS: PULSE 75; RESP 13
[2025-06-01] MEDS: IPRATROPIUM 0.5 MG/ALBUTEROL SULFATE 2.5 MG (BASE) AMPUL.NEB 3 ML INHALATION (19:55)
[2025-06-01 20:00] VITALS: PULSE 72; RESP 12
[2025-06-01 20:04] LABS: Influenza A QL RT-PCR Negative (Negative); Influenza B QL RT-PCR Negative (Negative); RSV RNA, RT-PCR Negative (Negative); SARS-CoV-2 RNA PCR Negative (Negative)
[2025-06-01 20:09] LABS: NT Pro B Type Natriuretic Pept 143 pg/mL (19.9-100)
== END 2025-06-01 21:55 | disposition home or self-care (01) ==
PROVIDERS: Emergency Medicine; Physician Assistant; Emergency Provider Emergency Medicine; PCP Family Medicine
DX: R07.9 Chest pain, unspecified (principal); J44.1 Chronic obstructive pulmonary disease with (acute) exacerbation; R94.31 Abnormal electrocardiogram [ECG] [EKG]; I12.9 Hypertensive chronic kidney disease with stage 1 through stage 4 chronic kidney disease, or unspecified chronic kidney disease; N18.31 Chronic kidney disease, stage 3a; Z87.440 Personal history of urinary (tract) infections; M19.90 Unspecified osteoarthritis, unspecified site; I25.10 Atherosclerotic heart disease of native coronary artery without angina pectoris; K21.9 Gastro-esophageal reflux disease without esophagitis
CPT/HCPCS: 36415; 71046; 80053; 83690; 83880; 84484; 85025; 85380; 85610; 85730; 87637; 93005; 94640; 99284; J7512